=== PATIENT | male | born 1955 | race Hispanic/Latino ===

== ENCOUNTER 2018-08-02 08:55 | Emergency (ER) | payer OTHER ==
[~2018-08-02] VITALS: Ht 170.2 cm; Wt 84.4 kg
[2018-08-02] MEDS ORDERED: PANTOPRAZOLE 40 MG 10ML VIAL IV STA (09:33)
[2018-08-02] MEDS ORDERED: KETOROLAC TROMETHAMINE 30 MG/ML VIAL IV STA (09:33)
[2018-08-02] MEDS ORDERED: SODIUM CHLORIDE 0.9% 1000ML 1,000 ML IV STA (09:33)
[2018-08-02 10:34] LABS: BASOPHILS % 0.3 % (0.0-1.0); EOSINOPHILS # (AUTO) 0.1 (0.0-0.4); EOSINOPHILS % 1.1 % (0.0-6.0); HEMATOCRIT 28.9 % (38.2-49.6); HEMOGLOBIN 9.9 g/dL (14.0-18.0); LYMPHOCYTES # (AUTO) 0.5 (1.0-3.2); LYMPHOCYTES % 7.3 % (18.0-39.1); MEAN CORPUSCULAR HEMOGLOBIN 32.9 pg (28-32); MEAN CORPUSCULAR HGB CONC 34.3 g/dL (31-35); MONOCYTES # (AUTO) 0.6 (0.2-0.8); MONOCYTES % 8.1 % (4.4-11.3); NEUTROPHILS # (AUTO) 6.1 (2.1-6.9); NEUTROPHILS % 82.5 % (38.7-80.0); PLATELET COUNT 309 x10e3/uL (140-360); RED BLOOD COUNT 3.01 x10e6/uL (4.3-5.7); RED CELL DISTRIBUTION WIDTH 15.7 % (11.7-14.4)
[2018-08-02 10:49] LABS: ALBUMIN 3.5 g/dL (3.5-5.0); ALBUMIN/GLOBULIN RATIO 0.9 (0.8-2.0); ANION GAP 13.8 mmol/L (8-16); CALCIUM 10.2 mg/dL (8.4-10.2); CREATININE, SERUM 3.06 mg/dL (0.72-1.25); POTASSIUM 4.8 mmol/L (3.5-5.1)
[2018-08-02] MEDS ORDERED: DIATRIZOATE MEGL/DIATRIZOA SOD 30 ML BTL PO ONE (11:34)
--- NOTE | 2018-08-02 12:00 | NUR ---
rec'd pt in walking rounds w/cordelia for continuity of care
--- NOTE | 2018-08-02 13:12 | Diagnostic Imaging Report ---
EXAMINATION: CT of the abdomen and pelvis without contrast. TECHNIQUE: Spiral CT images of the abdomen and pelvis were performed from the lung bases to the lesser trochanters. No intravenous contrast was given per referring physician request. Oral contrast was administered. Coronal and sagittal reformatted images were obtained. COMPARISON: None. CLINICAL HISTORY:Abdominal pain DISCUSSION: ABSENCE OF INTRAVENOUS CONTRAST DECREASES SENSITIVITY FOR DETECTION OF FOCAL LESIONS AND VASCULAR PATHOLOGY. ABDOMEN/PELVIS: LOWER THORAX: Unremarkable. HEPATOBILIARY:1.6 cm hypoattenuating lesion in hepatic segment 5 (series 2 image 17). 1.3 cm hypoattenuating lesion in the inferior most aspect of segment 5-6 seen on series 2 image 25. Questionable 1.8 cm hypoattenuating lesion in segment 8 centrally (series 2 image 10). Linear hypoattenuating structures within the liver parenchyma are felt to represent prominent portal venous branches rather than intrahepatic biliary dilatation. The gallbladder is collapsed. No radiopaque calculi. SPLEEN: No splenomegaly. PANCREAS: Evaluation is severely limited in the absence of intravenous contrast. Questionable 3 x 2.5 cm mass lesion in the pancreatic body with adjacent fat stranding which obscures the confluence of the SMV and portal vein, with atrophy of the tail, seen on series 2 image 21. ADRENALS: No adrenal nodules. KIDNEYS/URETERS: No hydronephrosis, stones, or solid mass lesions. PELVIC ORGANS/BLADDER: The urinary bladder is unremarkable. Prostate and seminal vesicles appear normal. Multiple pelvic phleboliths. PERITONEUM/RETROPERITONEUM: No free air or fluid. LYMPH NODES: Mildly enlarged babs hepatis lymph node measures 1 cm short axis. No pelvic sidewall or retroperitoneal lymphadenopathy. VESSELS: Limited evaluation without intravenous contrast. Atherosclerotic calcification of the abdominal aorta without aneurysmal dilatation. GI TRACT: The large bowel shows no evidence of distention or wall thickening. Gas and fecal material are noted throughout. The appendix is normal. There is no small bowel dilatation to suggest obstruction. Prominence of the gastric rugal folds likely due to underdistention. BONES AND SOFT TISSUES: No bony destructive lesions. No soft tissue abnormalities. IMPRESSION: Despite significant limitation of a noncontrast examination, findings are concerning for pancreatic neoplasm with hepatic metastases. MRI of the abdomen with MRCP is suggested for further evaluation, given low GFR precluding contrast-enhanced CT examination. Signed by: Dr. Corbin Beltran M.D. on 08/02/2018 1:09 PM
== END 2018-08-02 14:00 | disposition home or self-care (01) ==
LOC: ER 08:55
DX: R10.84 Generalized abdominal pain (principal); R11.0 Nausea; N17.9 Acute kidney failure, unspecified; C25.9 Malignant neoplasm of pancreas, unspecified; I10 Essential (primary) hypertension; E11.9 Type 2 diabetes mellitus without complications; E78.5 Hyperlipidemia, unspecified
CPT/HCPCS: 36415; 74176; 80053; 82550; 82553; 83690; 84484; 85025; 93005; 99284; C9113; J1885; J7030

== ENCOUNTER → 2018-08-16 | Day surgery (SDC) | payer OTHER ==
--- NOTE | 2018-08-15 10:14 | Diagnostic Imaging Report ---
EXAM: CHEST 2 VIEWS, PA and lateral DATE: 08/15/2018 Time stamp on exam: 9:48 AM INDICATION: Preoperative for Port-A-Cath placement COMPARISON: None FINDINGS: LINES/TUBES: Catheter is seen below the diaphragm in the right upper quadrant. LUNGS: No consolidations or edema. PLEURA: No effusions or pneumothorax. HEART AND MEDIASTINUM: Normal size and contour. BONES AND SOFT TISSUES: No acute findings. Mild degenerative changes of the spine. IMPRESSION: No acute thoracic abnormality. Signed by: Dr. John Aly DO on 08/15/2018 10:10 AM
[2018-08-15 10:47] LABS: BASOPHILS % 0.4 % (0.0-1.0); EOSINOPHILS # (AUTO) 0.1 (0.0-0.4); EOSINOPHILS % 1.6 % (0.0-6.0); HEMATOCRIT 25.4 % (38.2-49.6); HEMOGLOBIN 8.5 g/dL (14.0-18.0); LYMPHOCYTES # (AUTO) 0.4 (1.0-3.2); LYMPHOCYTES % 7.9 % (18.0-39.1); MEAN CORPUSCULAR HEMOGLOBIN 33.1 pg (28-32); MEAN CORPUSCULAR HGB CONC 33.5 g/dL (31-35); MEAN CORPUSCULAR VOLUME 98.8 fL (81-99); MONOCYTES # (AUTO) 0.5 (0.2-0.8); MONOCYTES % 9.9 % (4.4-11.3); NEUTROPHILS % 79.4 % (38.7-80.0); PLATELET COUNT 228 x10e3/uL (140-360); RED BLOOD COUNT 2.57 x10e6/uL (4.3-5.7); RED CELL DISTRIBUTION WIDTH 15.9 % (11.7-14.4)
[2018-08-15 10:51] LABS: INR 0.99; PROTHROMBIN TIME 13.6 seconds (11.9-14.5)
[2018-08-15 10:52] LABS: PARTIAL THROMBOPLASTIN TIME 28.7 seconds (23.8-35.5)
[2018-08-15 11:01] LABS: ALBUMIN/GLOBULIN RATIO 0.9 (0.8-2.0); ANION GAP 13.2 mmol/L (8-16); CALCIUM 9.3 mg/dL (8.4-10.2); CREATININE, SERUM 1.29 mg/dL (0.72-1.25); POTASSIUM 4.2 mmol/L (3.5-5.1)
[~2018-08-16] MED LIST: ASPIRIN PO; BACITRACIN 50,000 UNIT VIAL ONE; CEFAZOLIN SOD 1 GM VIAL ONE; CEFAZOLIN SOD 1 GM/NS 50ML 50 ML IV ONE; DEXAMETHASONE SOD PHOS INJ 4 MG/ML VIAL ONE; FENOFIBRATE145 MG PO; FENTANYL CITRATE/PF 100MCG/2 ML INJ ONE; FOLIC ACID1 MG PO; HEPARIN SOD (PORCINE) 5,000 UNIT/ML VIAL ONE; HYDROCODONE/APAP 7.5MG-325MG 1 EA TAB ONE; LIDOCAINE HCL 2% LOCAL INJ 5 ML SDV VIAL INJ ONE; METOPROLOL TART50 MG PO; MIDAZOLAM HCL 2 MG/2 ML VIAL ONE; ONDANSETRON HCL INJ 2MG/ML 2ML 2 MG/ML VIAL ONE; PROPOFOL IV EMULSION 10 MG/ML 20 ML VIAL ONE; SEVOFLURANE INHAL SOLN 250 ML PEN BTL ONE; SODIUM CHLORIDE 0.9% 500ML 500 ML ONE; TRESIBA FLEX TOUCH SC; [UNRECOGNIZED DRUG - OTHER] PO; aspirin; iron PO
--- OUTSIDE RECORDS SUMMARY | 2018-08-16 06:39 | XMS REPORT ---
[facility] Address Unknown Phone Unavailable Care Team Providers Care Chief Meter Reader Name Role Phone MICHEL GRAHAM Unavailable Unavailable Mando GUILLORY Unavailable Unavailable Problems This patient has no known problems. Allergies, Adverse Reactions, Alerts This patient has no known allergies or adverse reactions. Medications This patient has no known medications. Results Test Description Test Time Test Comments Text Results Atomic Results Result Comments CHEST 2 VIEWS 2018-08-15 10:08:00 [place] [address] Patient Name: TOMAS SANDERS MR #: [id number] : 1955 Age/Sex: 62/M Req #: [id number] Adm Physician: Ordered by: MICHEL GRAHAM MD Report #: [id number] Location: OR Room/Bed: Procedure: [id number] DX/CHEST 2 VIEWS Exam Date: 08/15/18 Exam Time: 0935 REPORT STATUS: Signed EXAM: CHEST 2 VIEWS, PA and lateral DATE: 08/15/2018 Time stamp on exam: 9:48 AM INDICATION: Preoperative for Port-A-Cath placement COMPARISON: None FINDINGS: LINES/TUBES: Catheter is seen below the diaphragm in the right upper quadrant. LUNGS: No consolidations or edema. PLEURA: No effusions or pneumothorax. HEART AND MEDIASTINUM: Normal size and contour. BONES AND SOFT TISSUES: No acute findings. Mild degenerative changes of the spine. IMPRESSION: No acute thoracic abnormality. Signed by: Dr. Lilly Aly DO on 08/15/2018 10:10 AM Dictated By: LILLY ALY DO 1010 Transcribed By: REBECCA on 08/15/18 1010 COPY TO: MICHEL GRAHAM MD CT ABDOMEN/PELVIS WO 2018-08-02 12:48:00 [place] [address] Patient Name: TOMAS SANDERS MR #: [id number] : 1955 Age/Sex: 62/M Req #: [id number] Adm Physician: Ordered by: MARLON GUILLORY MD Report #: [id number] Location: ER Room/Bed: Procedure: [id number] CT/CT ABDOMEN/PELVIS WO Exam Date: 08/02/18 Exam Time: 1230 REPORT STATUS: Signed EXAMINATION: CT of the abdomen and pelvis without contrast. TECHNIQUE: Spiral CT images of the abdomen and pelvis were performed from the lung bases to the lesser trochanters. No intravenous contrast was given per referring physician request. Oral contrast was administered. Coronal and sagittal reformatted images were obtained. COMPARISON: None. CLINICAL HISTORY:Abdominal pain DISCUSSION: ABSENCE OF INTRAVENOUS CONTRAST DECREASES SENSITIVITY FOR DETECTION OF FOCAL LESIONS AND VASCULAR PATHOLOGY. ABDOMEN/PELVIS: LOWER THORAX: Unremarkable. HEPATOBILIARY:1.6 cm hypoattenuating lesion in hepatic seg ment 5 (series 2 image 17). 1.3 cm hypoattenuating lesion in the inferior most aspect of segment 5-6 seen on series 2 image 25. Questionable 1.8 cm hypoattenuating lesion in segment 8 centrally (series 2 image 10). Linear hypoattenuating structures within the liver parenchyma are felt to represent prominent portal venous branches rather than intrahepatic biliary dilatation. The gallbladder is collapsed. No radiopaque calculi. SPLEEN: No splenomegaly. PANCREAS: Evaluation is severely limited in the absence of intravenous contrast. Questionable 3 x 2.5 cm mass lesion in the pancreatic body with adjacent fat stranding which obscures the confluence of the SMV and portal vein, with atrophy of the tail, seen on series 2 image 21. ADRENALS: No adrenal nodules. KIDNEYS/URETERS: No hydronephrosis, stones, or solid mass lesions. PELVIC ORGANS/BLADDER: The urinary bladder is unremarkable. Prostate and seminal vesicles appear normal. Multiple pelvic phleboliths. PERITONEUM/RETROPERITONEUM: No free air or fluid. LYMPH NODES: Mildly enlarged babs hepatis lymph node measures 1 cm short axis. No pelvic sidewall or retroperitoneal lymphadenopathy. VESSELS: Limited evaluation without intravenous contrast. Atherosclerotic calcification of the abdominal aorta without aneurysmal dilatation. GI TRACT: The large bowel shows no evidence of distention or wall thickening. Gas and fecal material are noted throughout. The appendix is normal. There is no small bowel dilatation to suggest obstruction. Prominence of the gastric rugal folds likely due to underdistention. BONES AND SOFT TISSUES: No bony destructive lesions. No soft tissue abnormalities. IMPRESSION: Despite significant limitation of a noncontrast examination, findings are concerning for pancreatic neoplasm with hepatic metastases. MRI of the abdomen with MRCP is suggested for further evaluation, given low GFR precluding contrast-enhanced CT examination. Signed by: Dr. Augie Mancera M.D. on 08/02/2018 1:09 PM Dictated By: AUGIE MANCERA MD 1301 Transcribed By: REBECCA on 08/02/18 1303 COPY TO: MARLON GUILLORY MD
--- NOTE | 2018-08-16 11:28 | Operative Report ---
DATE OF PROCEDURE: 08/16/2018 SURGEON: Lalito Philip MD PREOPERATIVE DIAGNOSIS: Advanced pancreatic cancer with liver invasion. POSTOPERATIVE DIAGNOSIS: Advanced pancreatic cancer with liver invasion. PROCEDURE PERFORMED: Left Port-A-Cath insertion via the subclavian region. ANESTHESIA: General. ESTIMATED BLOOD LOSS: Minimal. DRAINS: None. COMPLICATION: None. INDICATION: The patient is an unfortunate 62-year-old male recently diagnosed with advanced metastatic pancreatic cancer with invasion to the liver, who at the request of Oncology, Port-A-Cath was requested. A Bard Port-A-Cath, product number [id number], lot serial number [id number] was placed in the left subclavian region using Seldinger technique. DESCRIPTION OF PROCEDURE: With the patient lying on the operative table in the supine position after administration of general endotracheal anesthesia, he was given prophylactic antibiotics with Ancef 1 g and then prepped and draped for left subclavian venous port access. The left subclavian vein was percutaneously canalized and a guidewire introduced. Fluoroscopy revealed the guidewire to be lying in the right side of the heart in the great vessels. A pocket was then created using blunt dissection to accommodate the port, then the guidewire tract was dilated, the peel-away sheath was left in place and then the catheter was connected to the port using the self-locking mechanism and irrigated with heparinized solution, then the catheter was advanced through the peel-away sheath as sheath was removed and then placed in the pocket. Fluoroscopy again revealed that the catheter was lying in the superior vena cava right atrial junction. It was flushed again and irrigated well with heparinized solution, then the port was secured to the pectoral fascia at three different points with 2-0 silk to prevent migration. Then, the wound irrigated and any minor oozing was cauterized and the wound was closed in two layers using 2-0 Vicryl for the soft tissues and the skin was closed using 5-0 subcuticular Vicryl. Steri-Strips were placed. The patient tolerated the procedure well, was taken to the recovery room in stable condition. The family informed of the patient's status. They understand that the prognosis is dismal. Lalito Philip MD PJR/MODL /[id number]
[2018-08-16 12:04] VITALS: BP 103/69
--- NOTE | 2018-08-16 12:24 | Diagnostic Imaging Report ---
EXAMINATION: CHEST SINGLE (PORTABLE) INDICATION: Venous port access. COMPARISON: Chest radiograph 08/15/2018. FINDINGS: TUBES and LINES: Interval placement of a left subclavian Port-A-Cath with tip terminating in the upper SVC. Catheter projects over the right upper quadrant abdomen. LUNGS: Lungs are moderately inflated. There is no evidence of pneumonia or pulmonary edema. PLEURA: No pleural effusion or pneumothorax. HEART AND MEDIASTINUM: The cardiomediastinal silhouette is unremarkable. BONES AND SOFT TISSUES: No acute osseous abnormality. UPPER ABDOMEN: No free air under the diaphragm. IMPRESSION: Interval placement of a left subclavian Port-A-Cath with tip terminating in the upper SVC. No evidence of pneumothorax. Signed by: Dr. Geovanni Gruber MD on 08/16/2018 12:20 PM
== END | disposition home or self-care (01) ==
LOC: OR 06:33
PROVIDERS: ATTEND Surgery
DX: C25.9 Malignant neoplasm of pancreas, unspecified (principal); C78.7 Secondary malignant neoplasm of liver and intrahepatic bile duct; Z45.2 Encounter for adjustment and management of vascular access device; D64.9 Anemia, unspecified; E11.22 Type 2 diabetes mellitus with diabetic chronic kidney disease; I12.9 Hypertensive chronic kidney disease with stage 1 through stage 4 chronic kidney disease, or unspecified chronic kidney disease; N18.9 Chronic kidney disease, unspecified; Z01.810 Encounter for preprocedural cardiovascular examination; Z01.812 Encounter for preprocedural laboratory examination; Z01.818 Encounter for other preprocedural examination; Z79.82 Long term (current) use of aspirin; Z79.4 Long term (current) use of insulin; Z86.73 Personal history of transient ischemic attack (TIA), and cerebral infarction without residual deficits; Z87.891 Personal history of nicotine dependence; Z80.9 Family history of malignant neoplasm, unspecified
CPT/HCPCS: 36561; C1751; 36415; 71045; 71046; 77001; 80053; 82948; 85025; 85610; 85730; J0690; J1100; J1644; J2001; J2250; J2405; J7040

== ENCOUNTER 2018-09-05 21:57 | Inpatient (IN) | payer OTHER ==
[~2018-09-05] VITALS: Ht 170.2 cm; Wt 73.1 kg
[~2018-09-05 21:57] MED LIST changes: -BACITRACIN 50,000 UNIT VIAL ONE; -CEFAZOLIN SOD 1 GM VIAL ONE; -CEFAZOLIN SOD 1 GM/NS 50ML 50 ML IV ONE; -DEXAMETHASONE SOD PHOS INJ 4 MG/ML VIAL ONE; -FENTANYL CITRATE/PF 100MCG/2 ML INJ ONE; -HEPARIN SOD (PORCINE) 5,000 UNIT/ML VIAL ONE; -HYDROCODONE/APAP 7.5MG-325MG 1 EA TAB ONE; -LIDOCAINE HCL 2% LOCAL INJ 5 ML SDV VIAL INJ ONE; -MIDAZOLAM HCL 2 MG/2 ML VIAL ONE; -ONDANSETRON HCL INJ 2MG/ML 2ML 2 MG/ML VIAL ONE; -PROPOFOL IV EMULSION 10 MG/ML 20 ML VIAL ONE; -SEVOFLURANE INHAL SOLN 250 ML PEN BTL ONE; -SODIUM CHLORIDE 0.9% 500ML 500 ML ONE
[2018-09-05] MEDS ORDERED: ONDANSETRON HCL INJ 2MG/ML 2ML 2 MG/ML VIAL IV STA (22:21)
[2018-09-05 22:27] LABS: HEMATOCRIT 24.6 % (38.2-49.6); HEMOGLOBIN 8.7 g/dL (14.0-18.0); LYMPHOCYTES # (AUTO) 0.2 (1.0-3.2); MEAN CORPUSCULAR HEMOGLOBIN 34.1 pg (28-32); MEAN CORPUSCULAR HGB CONC 35.4 g/dL (31-35); MEAN CORPUSCULAR VOLUME 96.5 fL (81-99); PLATELET COUNT 79 x10e3/uL (140-360); RED BLOOD COUNT 2.55 x10e6/uL (4.3-5.7); RED CELL DISTRIBUTION WIDTH 13.7 % (11.7-14.4)
[2018-09-05] MEDS ORDERED: SODIUM CHLORIDE 0.9% 1000ML 1,000 ML IV SCH (22:30)
[2018-09-05] MEDS ORDERED: PROMETHAZINE 25MG/ NS 50ML (IV) IV ONE (22:30)
[2018-09-05 22:39] LABS: ALBUMIN 2.5 g/dL (3.5-5.0); ALBUMIN/GLOBULIN RATIO 0.7 (0.8-2.0); ANION GAP 19.6 mmol/L (8-16); CALCIUM 8.7 mg/dL (8.4-10.2); CREATININE, SERUM 1.62 mg/dL (0.72-1.25); POTASSIUM 3.6 mmol/L (3.5-5.1)
[2018-09-05 22:46] LABS: CREATINE KINASE MB 0.8 ng/mL (0-5.0)
[2018-09-05] MEDS ORDERED: METOPROLOL TAR100 MG PO (22:48)
[2018-09-05] MEDS ORDERED: PROCHLORPERAZIN10 MG PO (22:48)
[2018-09-05] MEDS ORDERED: NEXIUM40 MG PO (22:48)
[2018-09-05] MEDS ORDERED: TRESIBA SC (22:48)
[2018-09-05] MEDS ORDERED: HYDROCODON-ACE1 EAC9 PO (22:48)
[2018-09-05] MEDS ORDERED: ONDANSETRON HCL8 MG PO (22:48)
[2018-09-05 22:50] LABS: MAGNESIUM 1.6 MG/DL (1.3-2.1)
[2018-09-05] MEDS ORDERED: CEFEPIME HCL 1 GM VIAL IV SCH (23:00)
[2018-09-05] MEDS ORDERED: CEFEPIME 1GM/NS 0.9% 50 ML 50 ML IV ONE (23:04)
[2018-09-05] MEDS ORDERED: VANCOMYCIN 1GM/NS 250 ML 250 ML ONE (23:04)
[2018-09-05] MEDS ORDERED: SODIUM CHLORIDE 0.9% 1000ML 1,000 ML IV STA (23:07)
[2018-09-05] MEDS ORDERED: VANCOMYCIN 1GM/NS 250 ML 250 ML IV SCH (23:10)
--- NOTE | 2018-09-05 23:11 | Diagnostic Imaging Report ---
EXAMINATION: CHEST SINGLE (PORTABLE) COMPARISON: Chest x-ray 08/16/2018 INDICATION: ^COUGH ^[id number] ^2220 ^Y DISCUSSION: Frontal view of the chest obtained at 2219 hours. HEART AND MEDIASTINUM: The cardiomediastinal silhouette is unremarkable. LINES: MediPort catheter remains in the proximal SVC. LUNGS: The lungs are well inflated and clear. No pneumonia or pulmonary edema. PLEURA: No pleural effusion or pneumothorax. BONES AND SOFT TISSUES: No focal osseous lesion. The soft tissues are normal. IMPRESSION: No acute cardiopulmonary disease. Signed by: Dr. Mateo Casey MD on 09/05/2018 11:07 PM
[2018-09-05] MEDS ORDERED: DEXTROSE 50% SYRINGE 50 ML IV PRN (23:15)
[2018-09-05] MEDS ORDERED: ACETAMINOPHEN 1000 MG/100 ML IV PRN (23:15)
--- NOTE | 2018-09-05 23:26 | NUR ---
PT PLACED ON TELE BOX 1
[2018-09-06] VITALS (7 sets, daily range): BP systolic 132–187; BP diastolic 71–84
[2018-09-06 02:09] LABS: HYPOCHROMASIA MODERATE; LYMPHOCYTES % (MANUAL) 75 % (19-48); MONOCYTES % (MANUAL) 8 % (3.4-9.0); NEUTROPHILS % (MANUAL) 17 % (40-74)
[2018-09-06 02:11] LABS: HELMET CELLS MODERATE
[2018-09-06 02:12] LABS: SCHISTOCYTES MODERATE
[2018-09-06 02:13] LABS: PLATELET ESTIMATE MARKEDLY DECREASED; PLATELET MORPHOLOGY COMMENT MODERATE LARGE
[2018-09-06 03:11] LABS: BILIRUBIN,URINE SMALL (NEGATIVE); CLARITY,URINE CLEAR (CLEAR); COLOR,URINE YELLOW (YELLOW); KETONES,URINE NEGATIVE (NEGATIVE); LEUKOCYTE ESTERASE ,URINE NEGATIVE (NEGATIVE); NITRITE,URINE NEGATIVE (NEGATIVE); PROTEIN,URINE DIPSTICK 1+ (NEGATIVE); URINE UROBILINOGEN 0.2 mg/dL (0.2 - 1)
[2018-09-06 03:47] LABS: BACTERIA,URINE MANY /HPF; EPITHELIAL CELLS,URINE MODERATE /LPF
[2018-09-06 05:25] LABS: HEMOGLOBIN 7.2 g/dL (14.0-18.0); LYMPHOCYTES # (AUTO) 0.1 (1.0-3.2); MEAN CORPUSCULAR HEMOGLOBIN 34.8 pg (28-32); MEAN CORPUSCULAR HGB CONC 35.8 g/dL (31-35); MEAN CORPUSCULAR VOLUME 97.1 fL (81-99); RED BLOOD COUNT 2.07 x10e6/uL (4.3-5.7); RED CELL DISTRIBUTION WIDTH 13.6 % (11.7-14.4)
[2018-09-06 05:38] LABS: ALBUMIN/GLOBULIN RATIO 0.7 (0.8-2.0); ANION GAP 11.9 mmol/L (8-16); CALCIUM 7.9 mg/dL (8.4-10.2); CREATININE, SERUM 1.24 mg/dL (0.72-1.25); MAGNESIUM 2.1 MG/DL (1.3-2.1); PHOSPHORUS 2.6 MG/DL (2.3-4.7); POTASSIUM 3.9 mmol/L (3.5-5.1)
[2018-09-06 05:40] LABS: HEMATOCRIT 20.1 % (38.2-49.6); PLATELET COUNT 42 x10e3/uL (140-360)
[2018-09-06 06:48] LABS: ANISOCYTOSIS S; LYMPHOCYTES % (MANUAL) 80 % (19-48); MONOCYTES % (MANUAL) 10 % (3.4-9.0); NEUTROPHILS % (MANUAL) 10 % (40-74); PLATELET ESTIMATE MARKEDLY INCREASED; PLATELET MORPHOLOGY COMMENT NORMAL; POIKILOCYTOSIS S
[2018-09-06] MEDS: INSULIN REGULAR, HUMAN 100 UNIT/1 ML 3ML VIAL SQ SCH ×4 (07:30→21:00)
[2018-09-06] MEDS: SODIUM CHLORIDE 0.9% 1000ML 1,000 ML IV SCH ×4 (09:03→22:51)
--- NOTE | 2018-09-06 09:30 | NUR ---
aware of manual BP 179/80. Per " I will see patient soon"
[2018-09-06] MEDS ORDERED: HYDROCODONE/APAP 10MG-325MG TAB PO PRN (09:45)
[2018-09-06] MEDS ORDERED: ONDANSETRON HCL 4 MG ORAL DISINTEGRATING TAB PO PRN (09:45)
[2018-09-06] MEDS ORDERED: NON-FORMULARY MEDICATION (Ondansetron Hcl 8 MG) PO PRN (09:45)
[2018-09-06] MEDS ORDERED: TRESIBA 25 UNIT SC PRN (09:45)
[2018-09-06] MEDS ORDERED: ONDANSETRON HCL INJ 2MG/ML 2ML 2 MG/ML VIAL IV PRN (10:15)
[2018-09-06] MEDS: METOPROLOL SUCCINATE 50 MG TAB XL PO SCH (10:30)
--- NOTE | 2018-09-06 12:02 | Pre Op History & Physical ---
CHIEF COMPLAINT: Mr. Kelley is an unfortunate 63-year-old man, who is admitted at this time for nausea, vomiting, and diarrhea. HISTORY OF PRESENT ILLNESS: The patient tells me in Bhutanese only, that he had his 1st chemotherapy ever last week and consequently has no appetite and not eating, having nausea, vomiting, and diarrhea. PAST MEDICAL HISTORY: Significant for metastatic prostate cancer. Usually followed by Dr. Fleming, who is not available today. Full details are not available. He evidently has past history of hypertension as well and type 2 diabetes. HOME MEDICATIONS: Include Tresiba 25 units b.i.d., prochlorperazine 10 mg twice a day, ondansetron 8 mg q.6 hours p.r.n., metoprolol tartrate 100 mg daily, hydrocodone/acetaminophen, and Nexium 40 mg daily. PERSONAL AND SOCIAL HISTORY: Negative. PHYSICAL EXAMINATION: GENERAL: At this time, shows a thin, man, who looks much older than his stated age. VITAL SIGNS: Blood pressure 170/70. HEAD, EYES, EARS, NOSE, AND THROAT: Unremarkable. NECK: No jugular venous distention. THORAX: There is a left subclavian Port-A-Cath site, still healing, was implanted by Dr. Lalito Philip on August 16, 2018. HEART: Sounds S1, S2 are equal. No murmurs. LUNGS: Clear. ABDOMEN: Scaphoid. Normal bowel sounds. Nontender. EXTREMITIES: No cyanosis, clubbing, or edema. PERTINENT LABORATORY STUDIES: Shows hemoglobin 7.2, white count 0.2, and platelets 42,000. Sodium 139, potassium 3.9, chloride 101, bicarb 30, BUN 47, creatinine 1.2. Glucose 89. ASSESSMENT: 1. Nausea, vomiting, diarrhea, secondary to chemotherapy. 2. Neutropenia, secondary to chemotherapy. 3. Metastatic prostate cancer by history. 4. Hypertension. 5. Type 2 diabetes. PLAN: We will provide the patient with IV fluids and Imodium, Phenergan, and Zofran and we will ask Infectious Disease to continue antibiotic coverage for his neutropenia and prognosis is guarded. MD ILANA Silva/STEPHANIE /[id number] cc: MD Simon Soto MD Mohamed M Haq, MD
[2018-09-06] MEDS ORDERED: CEFEPIME 1GM/NS 0.9% 50 ML 50 ML IV SCH (13:00)
[2018-09-06] MEDS: LOPERAMIDE HCL 2 MG CAP PO PRN (15:45)
--- NOTE | 2018-09-06 16:32 | NUR ---
Manual BP taken BP 190/86. Paged to notify of patient's status
[2018-09-06] MEDS ORDERED: CLONIDINE HCL 0.1 MG TAB PO PRN (16:45)
--- NOTE | 2018-09-06 16:52 | NUR ---
FSBG 66. Apple juice given to patient
[2018-09-06] MEDS ORDERED: FILGRASTIM 300 MCG/ML VIAL SC SCH (17:00)
[2018-09-06] MEDS: VANCOMYCIN 1GM/NS 250 ML 250 ML IV SCH (17:03)
[2018-09-06] MEDS: PROCHLORPERAZINE MALEATE TAB 10 MG TAB PO SCH (17:04)
--- NOTE | 2018-09-06 19:00 | NUR ---
Received patient from day nurse, patient is alert and oriented, patient denies any pain at this time, patient is not in any form of distress, introduced self to patient, safety and fall precautions maintained as per hospital protocol: bed in lowest position and locked, needed items beside bed and call harris placed close to patient, patient instructed to use it to call nurses for help, patient verbalized understanding. patient is currently stable will continue to monitor.
--- NOTE | 2018-09-06 19:00 | NUR ---
REPORT GIVEN TO ONCOMING NURSE OF PATIENT'S STATUS. NO S/S OF ACUTE DISTRESS NOTED
--- NOTE | 2018-09-06 19:25 | Consultation ---
DATE OF CONSULTATION: 09/06/2018 REASON FOR CONSULTATION: Concerned about sepsis. HISTORY OF PRESENT ILLNESS: This patient is a 63-year-old Palestinian male, who was diagnosed recently with pancreatic cancer, received chemotherapy on August [address] Fleming. The patient comes in with sudden onset of some component of shortness of breath, a lot of what he describes as secretions coming from his throat and some shortness of breath, feverish. The patient came to the emergency room. In the emergency room, he was found to have white count of 0.25, hemoglobin 8.7, platelet of 79. Sodium 139, potassium 3.9, creatinine 1.24. The patient was admitted. He was started on cefepime. He is on Toprol, vancomycin, Zofran, and acetaminophen. The patient is feeling better since he came here. No specific complaints, just feeling really bad and feeling really fatigued. PAST MEDICAL HISTORY: Pancreatic cancer and hypertension. PAST SURGICAL HISTORY: Port-A-Cath. ALLERGIES: NO KNOWN ALLERGIES. SOCIAL HISTORY: He used to smoke, quit 30 years ago. No drug abuse or alcohol abuse. FAMILY HISTORY: Hypertension. REVIEW OF SYSTEMS: HEENT: Negative. PULMONARY: There is some shortness of breath and chest discomfort. PHYSICAL EXAMINATION: GENERAL: He is currently alert and oriented, does not seem to be in acute distress. VITAL SIGNS: Stable. HEENT: Normocephalic. NECK: Supple. CHEST: Few crackles. COR: S1, S2. No S3, S4, or murmur. ABDOMEN: Soft. Bowel sounds present. No tenderness. No hepatosplenomegaly. EXTREMITIES: No edema. SKIN: No rash. IMPRESSION AND PLAN: Sepsis with neutropenic fever and the patient on chemotherapy. I agree with cefepime, we will do 2 g q.8, vancomycin 1 g q.12. Await blood cultures and urine cultures. Follow vancomycin trough, daily CBC. We will give also Neupogen. We will follow with you. MD ELIU Lorenzo/STEPHANIE /[id number]
[2018-09-06] MEDS ORDERED: PROMETHAZINE 25MG/ NS 50ML (IV) IV PRN (20:30)
[2018-09-06] MEDS: CEFEPIME 2 GM/NS 0.9% 100 ML 100 ML IV SCH (21:17)
[2018-09-07] VITALS (8 sets, daily range): BP systolic 122–188; BP diastolic 57–79
[2018-09-07] MEDS: ONDANSETRON HCL INJ 2MG/ML 2ML 2 MG/ML VIAL IV SCH ×5 (00:01→23:19)
[2018-09-07] MEDS: VANCOMYCIN 1GM/NS 250 ML 250 ML IV SCH ×2 (05:00→18:25)
[2018-09-07 05:40] LABS: EOSINOPHILS % 9.1 % (0.0-6.0); LYMPHOCYTES # (AUTO) 0.1 (1.0-3.2); LYMPHOCYTES % 63.6 % (18.0-39.1); MEAN CORPUSCULAR HEMOGLOBIN 34.2 pg (28-32); MEAN CORPUSCULAR HGB CONC 34.9 g/dL (31-35); MEAN CORPUSCULAR VOLUME 97.9 fL (81-99); MONOCYTES % 13.6 % (4.4-11.3); NEUTROPHILS % 13.7 % (38.7-80.0); RED CELL DISTRIBUTION WIDTH 13.6 % (11.7-14.4)
[2018-09-07 05:45] LABS: HEMATOCRIT 18.6 % (38.2-49.6); HEMOGLOBIN 6.5 g/dL (14.0-18.0)
[2018-09-07 05:46] LABS: PLATELET COUNT 35 x10e3/uL (140-360)
[2018-09-07 05:56] LABS: BLOOD UREA NITROGEN 27 mg/dL (7-26); BUN/CREATININE RATIO 32 (6-25); CALCIUM 7.3 mg/dL (8.4-10.2); CARBON DIOXIDE 25 mmol/L (22-29); CHLORIDE 105 mmol/L (98-107); CREATININE, SERUM 0.84 mg/dL (0.72-1.25); EST GLOMERULAR FILTRATION RATE > 60 ML/MIN (60-); GLUCOSE 95 mg/dL (74-118); SODIUM 138 mmol/L (136-145)
[2018-09-07 06:05] LABS: ANION GAP 11.1 mmol/L (8-16)
[2018-09-07 06:06] LABS: POTASSIUM 3.1 mmol/L (3.5-5.1)
[2018-09-07] MEDS: CEFEPIME 2 GM/NS 0.9% 100 ML 100 ML IV SCH ×3 (06:09→21:32)
--- NOTE | 2018-09-07 06:14 | NUR ---
critical hgb, wbc, platelets and hmct called to Dr Lopez, spoke to Elsie on the phone.Waiting for call back.
[2018-09-07] MEDS ORDERED: SODIUM CHLORIDE 0.9% 250ML 250 ML IV ONE (07:00)
--- NOTE | 2018-09-07 07:20 | NUR ---
pt alert resp even and unlabored at this time no distress noted, no c/o pain when asked, pt able to make needs known, call light in reach pt family member at bedside.
[2018-09-07] MEDS: INSULIN REGULAR, HUMAN 100 UNIT/1 ML 3ML VIAL SQ SCH ×4 (07:30→21:00)
[2018-09-07] MEDS: SODIUM CHLORIDE 0.9% 1000ML 1,000 ML IV SCH ×2 (07:48→18:31)
--- NOTE | 2018-09-07 08:08 | NUR ---
patient endorsed to next shift for continuity of care, pending transfusion.
[2018-09-07 08:32] LABS: LYMPHOCYTES % (MANUAL) 82 % (19-48); MONOCYTES % (MANUAL) 6 % (3.4-9.0); NEUTROPHILS % (MANUAL) 12 % (40-74)
[2018-09-07 08:33] LABS: PLATELET ESTIMATE MARKEDLY DECREASED; PLATELET MORPHOLOGY COMMENT FEW EDTA CLUMPING; RBC MORPHOLOGY COMMENT NORMAL; TOXIC GRANULATION SLIGHT
[2018-09-07] MEDS ORDERED: ACETAMINOPHEN 1000 MG/100 ML IV ONE (09:00)
[2018-09-07] MEDS ORDERED: METOPROLOL SUCCINATE 50 MG TAB XL PO SCH (09:00)
[2018-09-07] MEDS ORDERED: FILGRASTIM 300 MCG/ML VIAL SC SCH (09:00)
[2018-09-07] MEDS ORDERED: NON-FORMULARY MEDICATION (Metoprolol Tartrate 100 MG) PO SCH (09:00)
[2018-09-07] MEDS: PANTOPRAZOLE SOD 40 MG TABEC PO SCH (09:11)
[2018-09-07] MEDS: METOPROLOL SUCCINATE 50 MG TAB XL PO SCH (09:11)
[2018-09-07] MEDS: PROCHLORPERAZINE MALEATE TAB 10 MG TAB PO SCH ×2 (09:11→17:14)
[2018-09-07] MEDS ORDERED: SODIUM CHLORIDE 0.9% 250ML 250 ML ONE (10:32)
[2018-09-07] MEDS: FILGRASTIM 480 MCG/0.8 ML SYRINGE SQ SCH (10:57)
[2018-09-07] MEDS: LOPERAMIDE HCL 2 MG CAP PO PRN (12:26)
--- NOTE | 2018-09-07 18:45 | NUR ---
Nutrition Intervention Note RD Recommendation(s) for Physician: The patient meets criteria for MODERATE protein-calorie malnutrition. 1.Recommend adding ADA 1800 to cardiac diet 2.Rec Glucerna BID to increase protein-calorie intake Plan of Care: RD following, monitoring for tolerance and adequacy, ONS recommendations Nutrition reason for involvement: Nutrition Risk Trigger RD Assessment (09/07) 63 y/o Tamaz[place] speaking male recently diagnosed with pancreatic cancer admitted for nausea, vomiting and diarrhea. Patient complained of lack of appetite and poor oral intake x 1 month and ongoing diarrhea. Pending stool culture. Patient at bedside who noted pt recently receiving first chemo therapy session last month in August. Noticed significant weight loss over past 3 months. Reported UBW of 200 lbs, 6 months ago. Will continue to monitor and follow. Principal Problems/Diagnoses: Neutropenic Fever PMH: Significant for metastatic prostate cancer, Hypertension , Type 2 Diabetes GI: Soft, Flat Abdomen, reports ongoing diarrhea, LBM-09/06 Skin: Warm, Dry Labs: (09/07) K 3.1, BUN 27, Torres 7.3. POC Glucose 129 Meds: (09/07) Ondasterone, Loperamide HCl, Humulin R Ht: 67in Wt: 160 lbs BMI: 25.05kg/m2 IBW: 148 lbs +/- 10% Malnutrition Evaluation (09/07) The patient meets criteria for MODERATE protein-calorie malnutrition. Energy intake: <50% of estimated energy requirements for >1 month Weight loss: >10% in 6 months (Chronic) Fat loss: Mild/Moderate pronounced hollow depressed dark circles Muscle loss: Mild/Moderate, slight depression of temporal muscle Supporting Evidence: Fluid accumulation: unable to evaluate Functional Status: unable to evaluate Nutrition Prescription (Diet Order): Cardiac Diet Estimated Nutritional Needs: 1819-2545calories/day (25-35 kcal/kg CBW) 72- 109 g protein/day (1.0-1.5 g pro/kg CBW) Diet Adequacy: Not meeting calorie needs, Not meeting protein needs Diet Education Needs Assessment: Diet education indicated, but patient not appropriate for education at this time. Nutrition Care Level: MODERATE Nutrition Diagnosis: Inadequate oral intake related to ongoing N/V/D and pancreatic cancer on chemotherapy as evidenced by patient reports and observations with poor oral intake x1 month, ongoing N/V and 20% weight loss in 6 months. Goal: Patient will meet 75-100% of estimated needs by follow up Progress: Progressing Interventions: -Commercial beverage, modified diet Monitoring/Evaluation: -Total energy intake, Total protein intake, Liquid supplement, Modified diet, Weight change Signed: Shelley Lu, MS, RDN, LD
--- NOTE | 2018-09-07 19:26 | NUR ---
report given to oncoming nurse for continued care, pt stable.
--- NOTE | 2018-09-07 22:38 | Progress Note ---
DATE: 09/07/2018 Mr. Kelley is doing better today. There are no new complaints. LABORATORIES: His cultures are negative. His white count today is 0.22, which is up from 0.2. His hemoglobin is 6.5. His platelet count is 35. The patient remains on vancomycin and Zofran and cefepime. REVIEW OF SYSTEMS: HEENT: Negative. PULMONARY: Negative. CARDIAC: Negative. GENERAL: He has had no more fever since admission and is on antibiotic. His T-max has been 100.0 on 09/05. PHYSICAL EXAMINATION: GENERAL: He is currently alert, oriented, does not seem to be in acute distress. VITAL SIGNS: Stable, currently afebrile. HEENT: Not icteric. NECK: Supple. CHEST: Clear. ABDOMEN: Soft. IMPRESSION: 1. Neutropenic fever. While his fever resolved, he remains neutropenic. 2. Anemia. 3. Thrombocytopenia. 4. Pancreatic cancer, status post chemo. Continue with the current choice of IV antibiotic with a daily CBC, daily chem panel. We will follow levels. 5. Hypokalemia, we will replace. 6. We will follow with you. MD EILU Lorenzo/STEPHANIE /[id number]
[2018-09-08] VITALS (8 sets, daily range): BP systolic 132–149; BP diastolic 61–68
[2018-09-08] MEDS ORDERED: SODIUM CHLORIDE 0.9% 250ML 250 ML ONE (01:14)
[2018-09-08] MEDS: SODIUM CHLORIDE 0.9% 1000ML 1,000 ML IV SCH ×2 (02:53→23:38)
[2018-09-08] MEDS: VANCOMYCIN 1GM/NS 250 ML 250 ML IV SCH ×2 (04:58→17:13)
[2018-09-08] MEDS: ONDANSETRON HCL INJ 2MG/ML 2ML 2 MG/ML VIAL IV SCH ×4 (06:33→23:38)
[2018-09-08] MEDS: CEFEPIME 2 GM/NS 0.9% 100 ML 100 ML IV SCH ×3 (06:33→21:55)
--- NOTE | 2018-09-08 07:15 | NUR ---
PT ASLEEP RESP EVEN AND UNLABORED AT THIS TIME NO DISTRESS NOTED, PT EASILY AROUSED TO NAME AND ABLE TO MAKE NEEDS KNOWN, CALL LIGHT IN REACH FAMILY MEMBER AT BEDSIDE.
[2018-09-08] MEDS: INSULIN REGULAR, HUMAN 100 UNIT/1 ML 3ML VIAL SQ SCH ×4 (07:30→20:46)
[2018-09-08 09:44] LABS: BASOPHILS % 1.5 % (0.0-1.0); EOSINOPHILS % 1.5 % (0.0-6.0); HEMATOCRIT 29.5 % (38.2-49.6); HEMOGLOBIN 10.2 g/dL (14.0-18.0); LYMPHOCYTES # (AUTO) 0.3 (1.0-3.2); LYMPHOCYTES % 18.4 % (18.0-39.1); MEAN CORPUSCULAR HEMOGLOBIN 32.2 pg (28-32); MEAN CORPUSCULAR HGB CONC 34.6 g/dL (31-35); MEAN CORPUSCULAR VOLUME 93.1 fL (81-99); MONOCYTES # (AUTO) 0.1 (0.2-0.8); MONOCYTES % 7.4 % (4.4-11.3); NEUTROPHILS % 70.5 % (38.7-80.0); PLATELET COUNT 57 x10e3/uL (140-360); RED BLOOD COUNT 3.17 x10e6/uL (4.3-5.7); RED CELL DISTRIBUTION WIDTH 15.1 % (11.7-14.4)
[2018-09-08] MEDS: METOPROLOL SUCCINATE 50 MG TAB XL PO SCH (09:46)
[2018-09-08] MEDS: PROCHLORPERAZINE MALEATE TAB 10 MG TAB PO SCH ×2 (09:46→17:13)
[2018-09-08] MEDS: PANTOPRAZOLE SOD 40 MG TABEC PO SCH (09:46)
[2018-09-08 10:05] LABS: ALANINE AMINOTRANSFERASE 18 IU/L (0-55); ALBUMIN 1.6 g/dL (3.5-5.0); ALBUMIN/GLOBULIN RATIO 0.5 (0.8-2.0); ALKALINE PHOSPHATASE 107 IU/L (40-150); ANION GAP 16.7 mmol/L (8-16); BLOOD UREA NITROGEN 28 mg/dL (7-26); BUN/CREATININE RATIO 30 (6-25); CALCIUM 7.6 mg/dL (8.4-10.2); CARBON DIOXIDE 20 mmol/L (22-29); CHLORIDE 107 mmol/L (98-107); CREATININE, SERUM 0.93 mg/dL (0.72-1.25); EST GLOMERULAR FILTRATION RATE > 60 ML/MIN (60-); GLUCOSE 139 mg/dL (74-118); POTASSIUM 3.7 mmol/L (3.5-5.1); SODIUM 140 mmol/L (136-145)
[2018-09-08 13:00] LABS: BAND NEUTROPHILS % (MANUAL) 8 %; EOSINOPHILS % (MANUAL) 2 % (0-7); LYMPHOCYTES % (MANUAL) 21 % (19-48); MONOCYTES % (MANUAL) 7 % (3.4-9.0); NEUTROPHILS % (MANUAL) 62 % (40-74)
[2018-09-08 13:01] LABS: PLATELET ESTIMATE MODERATELY DECREASED; PLATELET MORPHOLOGY COMMENT NORMAL
[2018-09-08 13:02] LABS: BURR CELLS SLIGHT; RBC MORPHOLOGY COMMENT ABNORMAL; SCHISTOCYTES FEW
[2018-09-08 13:04] LABS: TOXIC GRANULATION SLIGHT
[2018-09-08] MEDS: FILGRASTIM 480 MCG/0.8 ML SYRINGE SQ SCH (13:10)
--- NOTE | 2018-09-08 16:32 | Progress Note ---
DATE: 09/08/2018 SUBJECTIVE: Mr. Kelley is feeling better. There is no new complaint. REVIEW OF SYSTEMS: HEENT: Negative. PULMONARY: Negative. CARDIAC: Negative. : Negative. GI: Negative. SKIN: No rash. LABORATORY DATA: Reviewed. His blood cultures, no growth 48 hours. His white count is 1.36, hemoglobin of 10.2. PHYSICAL EXAMINATION: GENERAL: He is currently alert, oriented, does not seem to be in acute distress. VITAL SIGNS: Stable, currently afebrile. There is no fever since 09/05. HEENT: Not icteric. NECK: Supple. No JVD. No lymphadenopathy. No thyromegaly. CHEST: Clear bilateral. HEART: S1, S2. No S3, S4, or murmur. ABDOMEN: Soft. Bowel sounds present. No tenderness. EXTREMITIES: No edema. SKIN: No rash. IMPRESSION: Neutropenic fever, seems getting better. The patient's neutropenia is resolving. If blood cultures remain negative, can discharge home tomorrow. If his white cell count continues to go up, no antibiotic. We will follow. Discussed with Internal Medicine. Discussed with medical team. Discussed with family. MD ELIU Lorenzo/STEPHANIE /[id number]
[2018-09-09 01:09] VITALS: BP 120/57
[2018-09-09 04:51] VITALS: BP 128/60
[2018-09-09] MEDS: VANCOMYCIN 1GM/NS 250 ML 250 ML IV SCH (04:59)
[2018-09-09 05:21] LABS: BASOPHILS % 0.3 % (0.0-1.0); EOSINOPHILS % 1.1 % (0.0-6.0); HEMATOCRIT 30.9 % (38.2-49.6); HEMOGLOBIN 10.5 g/dL (14.0-18.0); LYMPHOCYTES # (AUTO) 0.5 (1.0-3.2); LYMPHOCYTES % 12.4 % (18.0-39.1); MEAN CORPUSCULAR HEMOGLOBIN 32.3 pg (28-32); MEAN CORPUSCULAR VOLUME 95.1 fL (81-99); MONOCYTES # (AUTO) 0.3 (0.2-0.8); MONOCYTES % 7.9 % (4.4-11.3); NEUTROPHILS # (AUTO) 2.9 (2.1-6.9); NEUTROPHILS % 75.4 % (38.7-80.0); PLATELET COUNT 68 x10e3/uL (140-360); RED BLOOD COUNT 3.25 x10e6/uL (4.3-5.7); RED CELL DISTRIBUTION WIDTH 15.4 % (11.7-14.4)
[2018-09-09 05:40] LABS: ANION GAP 16.2 mmol/L (8-16); BLOOD UREA NITROGEN 33 mg/dL (7-26); BUN/CREATININE RATIO 33 (6-25); CALCIUM 7.3 mg/dL (8.4-10.2); CARBON DIOXIDE 15 mmol/L (22-29); CHLORIDE 106 mmol/L (98-107); CREATININE, SERUM 1.01 mg/dL (0.72-1.25); EST GLOMERULAR FILTRATION RATE > 60 ML/MIN (60-); GLUCOSE 212 mg/dL (74-118); POTASSIUM 3.2 mmol/L (3.5-5.1); SODIUM 134 mmol/L (136-145)
--- NOTE | 2018-09-09 07:00 | NUR ---
RECEIVED BEDSIDE REPORT FROM RJ GALLOWAY. PT DENIES NEEDS AT THIS TIME.
[2018-09-09] MEDS: CEFEPIME 2 GM/NS 0.9% 100 ML 100 ML IV SCH (07:15)
[2018-09-09] MEDS: INSULIN REGULAR, HUMAN 100 UNIT/1 ML 3ML VIAL SQ SCH ×3 (07:30→17:13)
[2018-09-09 08:04] LABS: BAND NEUTROPHILS % (MANUAL) 6 %; LYMPHOCYTES % (MANUAL) 5 % (19-48); MONOCYTES % (MANUAL) 3 % (3.4-9.0); NEUTROPHILS % (MANUAL) 86 % (40-74)
[2018-09-09 08:05] LABS: PLATELET ESTIMATE MODERATELY DECREASED; PLATELET MORPHOLOGY COMMENT NORMAL
[2018-09-09 08:06] LABS: RBC MORPHOLOGY COMMENT NORMAL; TOXIC GRANULATION MODERATE
[2018-09-09] MEDS: PANTOPRAZOLE SOD 40 MG TABEC PO SCH (08:56)
[2018-09-09] MEDS: PROCHLORPERAZINE MALEATE TAB 10 MG TAB PO SCH ×2 (08:56→17:12)
[2018-09-09] MEDS: ONDANSETRON HCL INJ 2MG/ML 2ML 2 MG/ML VIAL IV SCH ×3 (08:56→17:12)
[2018-09-09] MEDS: METOPROLOL SUCCINATE 50 MG TAB XL PO SCH (08:57)
[2018-09-09 08:59] VITALS: BP 131/61
[2018-09-09 09:00] VITALS: BP 131/61
[2018-09-09 16:36] VITALS: BP 142/62
--- NOTE | 2018-09-09 17:24 | NUR ---
CLEARED BY DR. MUSE AND DR. PERRY FOR DISCHARGE HOME.
--- NOTE | 2018-09-09 20:12 | Consultation ---
DATE OF CONSULTATION: 09/09/2018 CONSULTATION REQUESTED: Willard Barber MD. REASON FOR CONSULTATION: Followup of carcinoma of the pancreas, on chemotherapy. HISTORY OF PRESENT ILLNESS: Thank you very kindly, Dr. 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 He had a stent placement in the biliary duct and aggressive 1 cycle of chemotherapy with folfirinox protocol. He had significant nausea, vomiting, and weakness from it and presented to the hospital with fever and neutropenia. He has been treated with hydration, broad spectrum antibiotic coverage, cultures, and followed by Infectious Disease. Cultures have negative so far. Chest x-ray was negative. He is feeling much butter. His nausea and vomiting have resolved. He was asking for food this morning. Additional details of the history as documented in the chart. Significant findings include comorbidities of diabetes, hypertension, and chronic kidney disease. Current complaints are mostly weakness. PHYSICAL EXAMINATION: GENERAL: An ill-looking male. VITAL SIGNS: As recorded in the chart. HEENT: Conjunctivae are little pale. There is a tough of scleral icterus. There is no palpable peripheral adenopathy. LUNGS: Clinically are clear. ABDOMEN: Soft. There is ascites. There is no calf muscle tenderness. EXTREMITIES: There are no areas of bone tenderness. NEUROLOGIC: There is no focal neurological deficit. LABORATORY DATA: Labs were reviewed. His bilirubin has decreased from the previous value. His neutropenia also has resolved. IMPRESSION: Carcinoma of the pancreas with liver metastasis, biliary obstruction status post stent placement, multiple comorbidities as listed. Admitted with neutropenic fever. Cultures negative. Neutropenia resolved. Fever resolved. From my point of view, the patient could be released if cleared Infectious Disease. I have advised him to follow up with me later in the week for plan and continuation of chemotherapy with appropriate dose adjustments in view of the neutropenic fever. Chepe Fleming MD [facility]/ANTONIL /[id number]
--- NOTE | 2018-09-10 11:42 | Discharge Summary ---
Mr. Kelley is a pleasant, but unfortunate 63-year-old man, who was admitted with fever and neutropenia. HOSPITAL COURSE: The patient was known to have metastatic pancreatic cancer and recently had chemotherapy treatment with Dr. Fleming. At home, he developed nausea, vomiting, and diarrhea and presented to the emergency room. The patient was noted to be neutropenic with white count of 0.2, hemoglobin 7.2, platelets 42,000. He was started on broad-spectrum antibiotics and seen by Dr. Lopez, covering Oncology, who transfused him with packed red blood cells as well. He was given Neupogen by Dr. Nicole. The patient's white cell count gradually improved. His nausea, vomiting, and diarrhea resolved, and by the 8th, the patient's white cell count was improved. He was discharged to home with no further antibiotics and he will follow up with Dr. Fleming for further management of the pancreatic cancer. DISCHARGE DIAGNOSES: 1. Neutropenic fever. 2. Pancreatic cancer. 3. Recent chemotherapy. 4. Hypertension. 5. Type 2 adult-onset diabetes. MD ILANA Silva/STEPHANIE /[id number] cc: MD Simon Gutiérrez MD
== END 2018-09-09 18:00 | disposition home or self-care (01) | DRG 808 ==
LOC: ER 21:57 → ERHOLD 23:04 → MED/SURG2 23:42
PROVIDERS: ADMIT Internal Medicine Cardiovascular Disease; ATTEND Internal Medicine Cardiovascular Disease
PROC: 30243N1 Transfusion of Nonautologous Red Blood Cells into Central Vein, Percutaneous Approach (ICD-10-PCS; principal; 2018-09-07)
DX: D70.1 Agranulocytosis secondary to cancer chemotherapy (principal); K83.1 Obstruction of bile duct; C25.9 Malignant neoplasm of pancreas, unspecified; C78.7 Secondary malignant neoplasm of liver and intrahepatic bile duct; E11.9 Type 2 diabetes mellitus without complications; E86.0 Dehydration; E78.5 Hyperlipidemia, unspecified; D64.9 Anemia, unspecified; E87.6 Hypokalemia; Z87.891 Personal history of nicotine dependence; R19.7 Diarrhea, unspecified; E11.22 Type 2 diabetes mellitus with diabetic chronic kidney disease; I12.9 Hypertensive chronic kidney disease with stage 1 through stage 4 chronic kidney disease, or unspecified chronic kidney disease; N18.9 Chronic kidney disease, unspecified
CPT/HCPCS: 36415; 71045; 80048; 80053; 81001; 82150; 82550; 82553; 82948; 83605; 83690; 83735; 84100; 84484; 85025; 86850; 86900; 86920; 87040; 87045; 87086; 93005; 96372; 96374; 99284; J0692; J1442; J1817; J2405; J2550; J3370; J7030; J7050; P9016

== ENCOUNTER → 2018-11-27 | Outpatient (CLI) | payer OTHER ==
[~2018-11-27] MED LIST changes: +HYDROCODON-ACE1 EAC9 PO; +IOPAMIDOL 370 MG/ML 200 ML INFUS..BTL INJ ONE; +METOPROLOL TAR100 MG PO; +NEXIUM40 MG PO; +ONDANSETRON HCL8 MG PO; +PROCHLORPERAZIN10 MG PO; +SODIUM CHLORIDE 0.9% 50ML 50 ML ONE; +TRESIBA SC
[2018-11-27 11:27] LABS: BLOOD UREA NITROGEN 11 mg/dL (7-26); BUN/CREATININE RATIO 14 (6-25); CREATININE, SERUM 0.77 mg/dL (0.72-1.25); EST GLOMERULAR FILTRATION RATE > 60 ML/MIN (60-)
--- NOTE | 2018-11-27 13:06 | Diagnostic Imaging Report ---
EXAM: CT Abdomen WITH intravenous contrast INDICATION: Pancreatic cancer COMPARISON: CT abdomen and pelvis of 08/02/2018 TECHNIQUE: Abdomen and pelvis were scanned utilizing a multidetector helical scanner from the lung base to the iliac crest after administration of IV contrast. Coronal and sagittal reformations were obtained. Routine protocol was performed. Scan was performed during portal venous phase. IV CONTRAST: 100mL of Isovue 370 ORAL CONTRAST: Water RADIATION DOSE: Total DLP: 180.7 mGy*cm Dose modulation, iterative reconstruction, and/or weight based adjustment of the mA/kV was utilized to reduce the radiation dose to as low as reasonably achievable. FINDINGS: LOWER THORAX: Mild bibasilar subsegmental atelectasis. HEPATOBILIARY: Compared to the prior CT of 08/02/2018, there has been interval increase in size of all previously described hepatic metastases and numerous new metastatic lesions in the right and left liver, for example a segment 7 lesion measuring 2.1 cm (series 2 image 14), a 2.3 cm segment 6 lesion (series 2 image 25), a 1 7-m segment 2 lesion (series 2 image 17, and a 8 mm segment 3 lesion (series 2 image 22). There is persistent intrahepatic biliary ductal dilatation left greater than right. An internal biliary stent was intervally placed, terminating superiorly in a left intrahepatic bile duct and inferiorly in the duodenum. SPLEEN: No splenomegaly. PANCREAS: Mild interval increase in size of the primary pancreatic mass which now measures approximately 3.9 x 3.6 cm compared to 3.4 x 3.4 cm previously (today's measurement). The mass completely encases the celiac artery and main portal vein and the central portion of the splenic vein and superior mesenteric vein with no appreciable contrast flow. The portal vein remains patent. ADRENALS: No adrenal nodules. KIDNEYS/URETERS: No hydronephrosis, stones, or solid mass lesions. PERITONEUM / RETROPERITONEUM: Small volume of abdominal ascites. LYMPH NODES: An enhancing periportal lymph node measures up to 1.4 cm short axis (series 2 image 28), previously 1.1 cm. Gastrohepatic lymph nodes measuring up to 1 cm short axis have also increased in size. VESSELS: Scattered atherosclerotic calcifications of the nonaneurysmal abdominal aorta and major branches. GI TRACT: No distention or wall thickening. BONES AND SOFT TISSUES: No acute osseous injury. Mixed sclerotic and lytic lesion of the T10 vertebral body has significantly increased in size, consistent with osseous metastasis. IMPRESSION: Interval progression of disease with increase in size of pancreatic mass, numerous new and increasing intrahepatic metastases, and osseous metastasis at the T10 vertebral body. Interval placement of internal biliary stent with persistent left greater than right intrahepatic biliary ductal dilation. Signed by: Sivakumar Rondon MD on 11/27/2018 1:02 PM
== END ==
LOC: CT 10:35
PROVIDERS: ATTEND Internal Medicine Hematology & Oncology
DX: C25.9 Malignant neoplasm of pancreas, unspecified (principal); C78.7 Secondary malignant neoplasm of liver and intrahepatic bile duct
CPT/HCPCS: 36415; 74160; 82565; 84520; Q9967

== ENCOUNTER 2019-01-28 18:53 | Inpatient (IN) | payer OTHER ==
[~2019-01-28] VITALS: Ht 170.2 cm; Wt 63.5 kg
[~2019-01-28 18:53] MED LIST changes: -IOPAMIDOL 370 MG/ML 200 ML INFUS..BTL INJ ONE; -SODIUM CHLORIDE 0.9% 50ML 50 ML ONE
[2019-01-28] MEDS ORDERED: SODIUM CHLORIDE 0.9% 1000ML 1,000 ML IV ONE ×2 (20:15→21:15)
[2019-01-28] MEDS ORDERED: ACETAMINOPHEN 325 MG TAB PO NR (20:15)
[2019-01-28] MEDS ORDERED: CEFEPIME 2 GM/NS 0.9% 100 ML 100 ML IV ONE (20:15)
[2019-01-28 20:50] LABS: BASOPHILS % 0.2 % (0.0-1.0); EOSINOPHILS % 0.1 % (0.0-6.0); HEMATOCRIT 24.5 % (38.2-49.6); HEMOGLOBIN 8.1 g/dL (14.0-18.0); LYMPHOCYTES # (AUTO) 0.2 (1.0-3.2); LYMPHOCYTES % 1.4 % (18.0-39.1); MEAN CORPUSCULAR HEMOGLOBIN 31.9 pg (28-32); MEAN CORPUSCULAR HGB CONC 33.1 g/dL (31-35); MEAN CORPUSCULAR VOLUME 96.5 fL (81-99); MONOCYTES # (AUTO) 0.2 (0.2-0.8); MONOCYTES % 1.1 % (4.4-11.3); NEUTROPHILS # (AUTO) 14.1 (2.1-6.9); NEUTROPHILS % 96.6 % (38.7-80.0); PLATELET COUNT 160 x10e3/uL (140-360); RED BLOOD COUNT 2.54 x10e6/uL (4.3-5.7); RED CELL DISTRIBUTION WIDTH 15.3 % (11.7-14.4)
[2019-01-28 20:59] LABS: STREPTOCOCCUS GRP A ANTIGEN NEGATIVE (NEGATIVE)
[2019-01-28 21:06] LABS: ALANINE AMINOTRANSFERASE 10 IU/L (0-55); ALBUMIN 1.8 g/dL (3.5-5.0); ALBUMIN/GLOBULIN RATIO 0.4 (0.8-2.0); ALKALINE PHOSPHATASE 249 IU/L (40-150); ANION GAP 16.8 mmol/L (8-16); BLOOD UREA NITROGEN 15 mg/dL (7-26); BUN/CREATININE RATIO 15 (6-25); CALCIUM 7.8 mg/dL (8.4-10.2); CARBON DIOXIDE 23 mmol/L (22-29); CHLORIDE 93 mmol/L (98-107); EST GLOMERULAR FILTRATION RATE > 60 ML/MIN (60-); GLUCOSE 197 mg/dL (74-118); POTASSIUM 3.8 mmol/L (3.5-5.1); SODIUM 129 mmol/L (136-145)
[2019-01-28 21:09] LABS: INFLUENZAE A&B ANTIGEN (RAPID) NEGATIVE (NEGATIVE)
--- NOTE | 2019-01-28 21:15 | Diagnostic Imaging Report ---
EXAMINATION: CHEST SINGLE (PORTABLE) INDICATION: Fever. COMPARISON: Chest radiograph 09/05/2018. FINDINGS: TUBES and LINES: Left subclavian Port-A-Cath with tip in the upper SVC. LUNGS: Low lung volumes. Mild patchy bibasilar opacities, likely atelectasis. There is no evidence of pneumonia or pulmonary edema. PLEURA: No pleural effusion or pneumothorax. HEART AND MEDIASTINUM: The cardiomediastinal silhouette is unremarkable. BONES AND SOFT TISSUES: No acute osseous lesion. Soft tissues are unremarkable. UPPER ABDOMEN: No free air under the diaphragm. IMPRESSION: Low lung volumes with mild patchy bibasilar opacities, likely atelectasis. No evidence of lobar pneumonia. Signed by: Dr. Geovanni Gruber MD on 01/28/2019 9:11 PM
[2019-01-28] MEDS ORDERED: SODIUM CHLORIDE 0.9% 1000ML 1,000 ML ONE (21:20)
[2019-01-28 21:25] LABS: AMYLASE 22 U/L (25-125); LIPASE 4 U/L (8-78)
[2019-01-28 21:32] LABS: CREATINE KINASE MB 0.5 ng/mL (0-5.0)
[2019-01-28] MEDS ORDERED: IOPAMIDOL 370 MG/ML 200 ML INFUS..BTL INJ ONE (22:13)
[2019-01-28 22:42] LABS: BILIRUBIN,URINE NEGATIVE (NEGATIVE); CLARITY,URINE CLEAR (CLEAR); KETONES,URINE NEGATIVE (NEGATIVE); LEUKOCYTE ESTERASE ,URINE NEGATIVE (NEGATIVE); NITRITE,URINE NEGATIVE (NEGATIVE); PROTEIN,URINE DIPSTICK TRACE (NEGATIVE); URINE UROBILINOGEN 0.2 mg/dL (0.2 - 1)
[2019-01-28 22:48] LABS: COLOR,URINE ORANGE (YELLOW)
[2019-01-28 22:55] LABS: BACTERIA,URINE MANY /HPF; EPITHELIAL CELLS,URINE FEW /LPF
--- NOTE | 2019-01-28 22:58 | Diagnostic Imaging Report ---
EXAM: CT Abdomen WITH intravenous contrast INDICATION: Abdominal pain, fever, history of metastatic pancreatic cancer. COMPARISON: CT abdomen with contrast 11/27/[address] abdomen/pelvis without contrast 08/02/2018. TECHNIQUE: Abdomen and pelvis were scanned utilizing a multidetector helical scanner from the lung base to the iliac crest after administration of IV contrast. Coronal and sagittal reformations were obtained. Routine protocol was performed. Scan was performed during portal venous phase. IV CONTRAST: 100mL of Isovue 370 ORAL CONTRAST: Water RADIATION DOSE: Total DLP: 360.6 mGy*cm Dose modulation, iterative reconstruction, and/or weight based adjustment of the mA/kV was utilized to reduce the radiation dose to as low as reasonably achievable. FINDINGS: LOWER THORAX: Mild bibasilar subsegmental atelectasis. Coronary atherosclerosis. HEPATOBILIARY: Enlargement of previously described metastases with multiple new lesions. Examples include a right hepatic dome lesion measuring up to 2.7 cm (series 2, image 14), previously 2.1 cm; a segment 4 lesion measures up to 3.3 cm (image 16), previously 2.2 cm. Numerous other new hepatic lesions. Slight interval increase in intrahepatic biliary ductal dilatation, left greater than right. Again noted is an internal left biliary stent extending from the left intrahepatic bile duct and terminating in the duodenum. SPLEEN: No splenomegaly. PANCREAS: Mild interval increase in size of the primary pancreatic mass which now measures approximately 4.7 x 3.7 cm compared to 3.9 x 3.6 cm previously. The mass completely encases the celiac artery and main portal vein and the central portion of the splenic vein and superior mesenteric vein with no appreciable contrast flow, as before. The main portal vein remains patent but somewhat attenuated. Pancreatic ductal dilatation, measuring up to 1.1 cm with atrophy of the body and tail. ADRENALS: No adrenal nodules. KIDNEYS/URETERS: No hydronephrosis, stones, or solid mass lesions. PERITONEUM / RETROPERITONEUM: Interval increase in size of moderate volume ascites. LYMPH NODES: Slight interval decrease in size of a periportal lymph node, measuring up to 1.2 cm (series 2, image 28), previously 1.4 cm. Unchanged 5 mm aortocaval lymph node. VESSELS: Scattered atherosclerotic calcifications of the nonaneurysmal abdominal aorta and major branches. GI TRACT: Moderate hiatal hernia. No evidence of bowel obstruction. There is mild wall thickening and mucosal enhancement in small bowel loops. There is wall thickening throughout the colon and rectum. There is soft tissue fullness in the distal rectum/anus. BONES AND SOFT TISSUES: No acute osseous injury. Mixed sclerotic and lytic lesion of the T10 vertebral body appears similar to the prior study. No evidence of pathologic fracture. IMPRESSION: Findings consistent with enteritis/proctocolitis, which may be infectious or inflammatory. Interval progression of disease with increase in size of pancreatic mass and numerous new and increasing intrahepatic metastases. Increasing moderate volume ascites. Similar appearance of osseous metastasis at the T10 vertebral body. Left internal biliary stent in unchanged position with slight interval increase in left greater than right intrahepatic biliary ductal dilatation. Soft tissue fullness in the distal rectum/anus. This may be secondary to decompression, however would be amenable to direct inspection. Signed by: Dr. Geovanni Gruber MD on 01/28/2019 10:55 PM
--- NOTE | 2019-01-28 23:27 | NUR ---
2nd lactic drawn and sent to the lab
--- NOTE | 2019-01-28 23:39 | NUR ---
DR. CAI IN TO SPEAK WITH PT AT THIS TIME
[2019-01-29] VITALS (10 sets, daily range): BP systolic 111–136; BP diastolic 50–74
[2019-01-29] MEDS ORDERED: ONDANSETRON HCL INJ 2MG/ML 2ML 2 MG/ML VIAL IV PRN (01:00)
[2019-01-29] MEDS ORDERED: DEXTROSE 50% SYRINGE 50 ML IV PRN (01:00)
[2019-01-29] MEDS: METRONIDAZOLE 500MG/NS 100ML 100 ML IV SCH ×4 (01:18→19:19)
[2019-01-29] MEDS: SODIUM CHLORIDE 0.9% 1000ML 1,000 ML IV SCH ×3 (01:18→16:43)
--- NOTE | 2019-01-29 03:28 | NUR ---
PT ARRIVED WITH [facility]OCK[facility]OD & [facility]. APPEARS TO BE COMFORTABLE, NO DISTRESS, DENIES PAIN, VS STABLE, ON RA-LUNG SOUNDS CLEAR BILATERALLY, HISTORY OBTAINED FROM ER STAFF & WHO IS AT BEDSIDE. SHE SPEAKS BOTH NEPALI AND MINIMAL SAO TOMEAN, THE PATIENT HIMSELF IS PRIMARILY NEPALI SPEAKING. PORT A CATH HAS BEEN ACCESSED BY ER, NS RUNNING AT 125 MLS/HR. IV ABX, BXC & URINE CX PENDING, LACTIC ELEVATED & WILL DRAW REPEAT. SKIN INTACT, NO WOUNDS NOTED. PT IS ON BEDREST AT THIS TIME, STATES HE AMBULATES INDEPENDENTLY AT HOME BUT LAST FEW DAYS HAS BEEN VERY WEAK AND FATIGUED. CONSULT TO [facility] BY ER, WILL SEE TOMORROW. PT DENIES BLOOD IN STOOL, STATES HIS LAST BM WAS 01/28-[facility]. DENIES ABD PAIN AT THIS TIME, ABD IS SOFT & BOWEL SOUNDS ACTIVE IN ALL QUADRANTS. PT REPORTS ONE EPISODE OF EMESIS IN ER. Addendum: 01/29/19 at 0420 by Vee Daly RN ER STATED PORT A CATH NEEDLE USED WAS 20 3
[2019-01-29 05:55] LABS: BASOPHILS % 0.1 % (0.0-1.0); LYMPHOCYTES # (AUTO) 0.3 (1.0-3.2); LYMPHOCYTES % 2.4 % (18.0-39.1); MEAN CORPUSCULAR HEMOGLOBIN 32.1 pg (28-32); MEAN CORPUSCULAR HGB CONC 32.8 g/dL (31-35); MEAN CORPUSCULAR VOLUME 97.9 fL (81-99); MONOCYTES # (AUTO) 0.4 (0.2-0.8); NEUTROPHILS # (AUTO) 12.6 (2.1-6.9); NEUTROPHILS % 93.2 % (38.7-80.0); PLATELET COUNT 117 x10e3/uL (140-360); RED BLOOD COUNT 1.93 x10e6/uL (4.3-5.7); RED CELL DISTRIBUTION WIDTH 15.4 % (11.7-14.4)
[2019-01-29 06:04] LABS: ALANINE AMINOTRANSFERASE 12 IU/L (0-55); ALBUMIN 1.5 g/dL (3.5-5.0); ALBUMIN/GLOBULIN RATIO 0.4 (0.8-2.0); ALKALINE PHOSPHATASE 169 IU/L (40-150); ANION GAP 10.9 mmol/L (8-16); BLOOD UREA NITROGEN 14 mg/dL (7-26); BUN/CREATININE RATIO 16 (6-25); CARBON DIOXIDE 25 mmol/L (22-29); CHLORIDE 97 mmol/L (98-107); CREATININE, SERUM 0.86 mg/dL (0.72-1.25); EST GLOMERULAR FILTRATION RATE > 60 ML/MIN (60-); GLUCOSE 209 mg/dL (74-118); POTASSIUM 3.9 mmol/L (3.5-5.1); SODIUM 129 mmol/L (136-145)
[2019-01-29 06:05] LABS: HEMATOCRIT 18.9 % (38.2-49.6); HEMOGLOBIN 6.2 g/dL (14.0-18.0)
[2019-01-29] MEDS: CEFEPIME 2 GM/NS 0.9% 100 ML 100 ML IV SCH ×3 (06:17→23:24)
[2019-01-29 07:06] LABS: HEMATOCRIT 18.1 % (38.2-49.6)
--- NOTE | 2019-01-29 07:13 | NUR ---
Dr Isaac paged about low blood count
[2019-01-29 07:31] LABS: BAND NEUTROPHILS % (MANUAL) 1 %; LYMPHOCYTES % (MANUAL) 1 % (19-48); MONOCYTES % (MANUAL) 2 % (3.4-9.0); NEUTROPHILS % (MANUAL) 96 % (40-74)
[2019-01-29 07:32] LABS: ANISOCYTOSIS SLIGHT; BURR CELLS SLIGHT; MICROCYTOSIS SLIGHT; POIKILOCYTOSIS SLIGHT
[2019-01-29 07:33] LABS: HELMET CELLS RARE; OVALOCYTES FEW
[2019-01-29 07:34] LABS: HYPOCHROMASIA SLIGHT; PLATELET ESTIMATE SLIGHTLY DECREASED; RBC MORPHOLOGY COMMENT ABNORMAL; TOXIC GRANULATION SLIGHT
[2019-01-29 07:35] LABS: PLATELET MORPHOLOGY COMMENT NORMAL
[2019-01-29] MEDS: INSULIN REGULAR, HUMAN 100 UNIT/1 ML 3ML VIAL SQ SCH ×4 (08:12→20:11)
--- NOTE | 2019-01-29 08:21 | NUR ---
Dr Isaac did not return call. Paged Dr Barber and 1 unit PRB ordred to give and 1 unit to hold.
[2019-01-29] MEDS ORDERED: SODIUM CHLORIDE 0.9% 250ML 250 ML IV ONE ×2 (08:30→17:00)
--- NOTE | 2019-01-29 10:29 | History and Physical ---
Mr. Kelley is an unfortunate 63-year-old man, diabetic, diagnosed with pancreatic carcinoma earlier this year. CHIEF COMPLAINT: He presents to the emergency room with a complaint of abdominal discomfort and a temperature of 100.0. HISTORY OF PRESENT ILLNESS: The patient reports he is not eating much. He is losing weight, but he has visited with Dr. Fleming as recently as SundayJanuary 27 in his office, who planned for further chemotherapy. PAST MEDICAL HISTORY: Significant for hospitalization at [facility] in September of 2018 for neutropenic fever after his first chemotherapy. He has a history of hypertension and diabetes. HOME MEDICATIONS: Include: 1. Nexium 40 mg daily. 2. Hydrocodone. 3. Metoprolol tartrate 100 mg daily. 4. Ondansetron. 5. Tresiba 25 units b.i.d. as needed. PHYSICAL EXAMINATION: GENERAL: At this time shows a thin, wasted looking man, who is awake. VITAL SIGNS: Blood pressure 123/53 and temperature 98.0. HEAD, EYES, EARS, NOSE, AND THROAT: Shows wasting. THORAX: There is a left subclavian Port-A-Cath with access. HEART: Sounds S1 and S2 are equal. No murmurs. LUNGS: Clear. ABDOMEN: Distended, nontender, soft with fluid wave. EXTREMITIES: Thin. INITIAL LABORATORY: Show hemoglobin 6.0 and white count 13.4. BUN 14, creatinine 0.8, and glucose 209. Lactic acid reported at 4.9 and 3.2. ASSESSMENT: 1. Metastatic pancreatic cancer with ascites by CAT scan. 2. Anemia. 3. Sepsis. 4. Diabetes. PLAN: He has been given broad-spectrum antibiotics. We will continue diabetic medications and consider transfusion for his anemia, hemoglobin 6.0. We will consult Gastroenterology and Oncology. His prognosis is guarded. MD ILANA Silva/ANTONIL /[id number] cc: MD Chepe Mcnamara MD Mohammed A Quraishi, MD Ramon A Pineda, MD
--- NOTE | 2019-01-29 11:39 | NUR ---
1st unit of blood transfusing with no reaction after 30 min. will monitor closely.
[2019-01-29] MEDS: ACETAMINOPHEN 325 MG TAB PO PRN ×2 (13:12→21:06)
--- NOTE | 2019-01-29 16:10 | NUR ---
2nd unit PRBC started and no reaction at 15 min.
[2019-01-29 18:06] LABS: OCCULT BLOOD STOOL NEGATIVE (NEGATIVE)
--- NOTE | 2019-01-29 18:06 | NUR ---
RD Recommendation(s) for Physician: The patient meets criteria for unspecified SEVERE protein-calorie malnutrition. -Ensure clear with meals -Advance diet to diabetic diet when medically appropriate Plan of Care: RD following, monitoring for tolerance and adequacy Nutrition reason for involvement: MST RD Assessment (01/29/19) Pt is a 63 year old male admitted with protocolitis and septic shock. Spoke to pt and family member. Pt and family member are Honduran speaking; therefore, a registered respiratory technician conveyed the information. Pt is currently on a clear liquid diet. Prior to admission, pt had been eating < 50% of meals since August 2018. Pt reports pain when he eats. Per wt history in chart, pt had a wt of 160 lbs in September 2018. Pt currently has a wt of 140 lbs in chart. If accurate, this would be a 13% wt loss in 4 months severe wt loss. Pt reports some nausea but mentioned he is receiving medication for this and has been having diarrhea. Will continue to monitor. Principal Problems/Diagnoses: protocolitis and septic shock PMH: HTN, diabetes, diagnosed with pancreatic carcinoma earlier this year I/O: 600/925 GI: soft, nontender abdomen, liquid stools Skin: no pressure ulcers Labs: (01/29/19) Na 129, Glu 209, Ca 7 Meds: (01/29/19) NaCl, insulin regular, ondansetron Ht: 67 inches Wt: 140 lbs BMI: 21.9 kg/m2 IBW: 147 lbs Malnutrition Evaluation (01/29/19 The patient meets criteria for unspecified SEVERE protein-calorie malnutrition. Energy intake: <50% of estimated energy requirements for >1 month Weight loss: 13% wt loss in 4 months Fat loss: no loss identified Muscle loss: Mild/moderate, temporal muscle depletion Supporting Evidence: Fluid accumulation: unable to evaluate Functional Status: unable to evaluate Nutrition Prescription (Diet Order): clear liquids Estimated Nutritional Needs: 1767-2442 calories/day (25-35 kcal/kg CBW) 64-95 g protein/day (1.-1.5g pro/kg CBW) Diet Adequacy: Not meeting calorie needs, Not meeting protein needs Tolerance:Tolerating PO Diet Education Needs Assessment: RD is available for diet education as needed Nutrition Care Level: high Nutrition Diagnosis: Severe protein kcal malnutrition related to chronic illness as evidenced by pt meeting < 75% of energy needs for > 1 month, 13% wt loss in 4 months, and mild/moderate muscle depletion. Goal: Patient will meet 75-100% of estimated needs by follow up Progress: N/A Interventions: Commercial beverage Monitoring/Evaluation: -Total energy intake, Total protein intake, Liquid supplement, Weight change Signed: Sylvia Lorenzana RD, LD
[2019-01-29] MEDS ORDERED: SODIUM CHLORIDE 0.9% 250ML 250 ML ONE (20:41)
--- NOTE | 2019-01-29 21:07 | NUR ---
patient is in bed,awake alert oriented. family members on bed side. blood the last unit started. vitals checked, tylenol prn given for abdominal pain, will continue to monitor.
[2019-01-30] VITALS (8 sets, daily range): BP systolic 136–150; BP diastolic 61–75
[2019-01-30] MEDS: METRONIDAZOLE 500MG/NS 100ML 100 ML IV SCH ×4 (00:17→17:11)
[2019-01-30] MEDS ORDERED: PANTOPRAZOLE 40 MG 10ML VIAL IV STA (01:10)
[2019-01-30] MEDS ORDERED: PANTOPRAZOLE 40 MG 10ML VIAL IV SCH (01:15)
[2019-01-30] MEDS: SODIUM CHLORIDE 0.9% 1000ML 1,000 ML IV SCH ×3 (02:50→17:11)
--- NOTE | 2019-01-30 03:20 | NUR ---
patient just had another bowel movement, sent the sample to the lab.
[2019-01-30] MEDS: CEFEPIME 2 GM/NS 0.9% 100 ML 100 ML IV SCH ×3 (05:56→22:22)
[2019-01-30 05:58] LABS: BASOPHILS % 0.1 % (0.0-1.0); EOSINOPHILS % 0.1 % (0.0-6.0); HEMOGLOBIN 10.7 g/dL (14.0-18.0); LYMPHOCYTES # (AUTO) 0.6 (1.0-3.2); LYMPHOCYTES % 3.6 % (18.0-39.1); MEAN CORPUSCULAR HEMOGLOBIN 30.5 pg (28-32); MEAN CORPUSCULAR HGB CONC 34.5 g/dL (31-35); MEAN CORPUSCULAR VOLUME 88.3 fL (81-99); MONOCYTES # (AUTO) 0.7 (0.2-0.8); MONOCYTES % 4.8 % (4.4-11.3); NEUTROPHILS # (AUTO) 13.7 (2.1-6.9); NEUTROPHILS % 90.5 % (38.7-80.0); PLATELET COUNT 116 x10e3/uL (140-360); RED BLOOD COUNT 3.51 x10e6/uL (4.3-5.7); RED CELL DISTRIBUTION WIDTH 18.6 % (11.7-14.4)
[2019-01-30 06:15] LABS: ALANINE AMINOTRANSFERASE 22 IU/L (0-55); ALBUMIN 1.5 g/dL (3.5-5.0); ALBUMIN/GLOBULIN RATIO 0.4 (0.8-2.0); ALKALINE PHOSPHATASE 168 IU/L (40-150); ANION GAP 11.1 mmol/L (8-16); BLOOD UREA NITROGEN 19 mg/dL (7-26); BUN/CREATININE RATIO 26 (6-25); CALCIUM 7.1 mg/dL (8.4-10.2); CARBON DIOXIDE 22 mmol/L (22-29); CHLORIDE 101 mmol/L (98-107); CREATININE, SERUM 0.73 mg/dL (0.72-1.25); EST GLOMERULAR FILTRATION RATE > 60 ML/MIN (60-); GLUCOSE 106 mg/dL (74-118); POTASSIUM 3.1 mmol/L (3.5-5.1); SODIUM 131 mmol/L (136-145)
--- NOTE | 2019-01-30 07:05 | NUR ---
Pt received resting in bed with family at bedside. Alert and oriented x3. Oriented to staff and surroundings. Encouraged to press call [facility] if help needed. Emotional support given. Pt with left chest wall port-A-cath receiving IV fluid as ordered. Will monitor
[2019-01-30] MEDS: ACETAMINOPHEN 325 MG TAB PO PRN (07:15)
[2019-01-30] MEDS: INSULIN REGULAR, HUMAN 100 UNIT/1 ML 3ML VIAL SQ SCH ×4 (07:30→21:03)
[2019-01-30] MEDS: PANTOPRAZOLE 40 MG 10ML VIAL IV SCH ×2 (08:34→20:59)
[2019-01-30 08:43] LABS: WBC,FECAL (FECAL LACTOFERRIN) POSITIVE (NEGATIVE)
[2019-01-30 10:02] LABS: C DIFFICILE TOXIN A&B AMP PROB **POSITIVE** (NEGATIVE)
[2019-01-30] MEDS ORDERED: POTASSIUM CHLORIDE 10MEQ EA PO SCH ×2 (10:15→12:00)
--- NOTE | 2019-01-30 10:17 | NUR ---
Dr. Danae Isaac notified regarding positive C. Diff. Orders given. Will follow up
[2019-01-30] MEDS ORDERED: POTASSIUM CHLORIDE 20 MEQ TAB CR PO ONE ×2 (10:30→12:00)
[2019-01-30] MEDS: VANCOMYCIN 250MG/5ML ORAL SOLN PO SCH ×2 (10:59→17:11)
[2019-01-30] MEDS: DICYCLOMINE HCL 20 MG TAB PO SCH ×2 (10:59→22:22)
--- NOTE | 2019-01-30 13:50 | NUR ---
Pt has had 6 BM during this shift. Dr. Danae Isaac notified. Lomotil 2 caps ordered. Pain c/o pain Dr. Cuba paged
[2019-01-30] MEDS ORDERED: DIPHENOXYLATE/ATROPINE TAB PO ONE (14:00)
[2019-01-30] MEDS: HYDROCODONE/APAP 5MG-325MG TAB PO PRN (14:13)
[2019-01-30] MEDS ORDERED: BISMUTH SUBSALICYLATE 262 MG/15 ML 8OZ BTL PO PRN (15:30)
--- NOTE | 2019-01-30 16:07 | Consultation ---
DATE OF CONSULTATION: 01/29/[address] Willard Barber. HISTORY OF PRESENT ILLNESS: Mr. Lee is a 63-year-old male, who presented with weakness. Subsequently, he was found to have a very low hemoglobin with a high white count. Subsequently, admitted for further evaluation and treatment. HISTORY OF PAST ILLNESS: History of cancer of the prostate, history of cancer of pancreas with liver metastases. Subsequently, has been treated by systemic chemotherapy at Dr. Fleming's office. The patient was supposed to have gotten the systemic chemotherapy again, however, had to be hospitalized because of excessive weakness. SOCIAL HISTORY: Noncontributory. FAMILY HISTORY: Noncontributory. ALLERGIES: REPORTED NONE. MEDICATIONS: At this time: 1. Nexium. 2. Hydrocodone. 3. Metoprolol. 4. Ondansetron. 5. Tresiba. REVIEW OF SYSTEMS: HEENT: Normal. CARDIAC: Normal. RESPIRATORY: Pleural effusion. GI: Cancer of the pancreas with liver metastases, ascites. : History of cancer of the prostate. NEUROENDOCRINE: At the present time hyperglycemic. PHYSICAL EXAMINATION: GENERAL: A very cachectic male, anemic. NECK: No palpable adenopathy. HEART: Within normal limits. LUNGS: Clear. ABDOMEN: Soft. Questionable ascites. Liver is felt 2 inches down the costal margin. RECTAL: Deferred. CENTRAL NERVOUS SYSTEM: Essentially normal. EXTREMITIES: 1+ pitting edema of the feet. LABORATORY DATA: Lab shows a hemoglobin of 8.1 on 01/28/2019, however, with hydration the hemoglobin dropped down to 6.2, hematocrit of 18.9, white count of 13,490, platelets of 117,000 with a marked shift to the left. Chemistry shows a sodium of 129, potassium 3.8, chloride is 93, CO2 23, BUN 15, and creatinine 1.0. Lactic acid high at 4.8. Calcium low at 7.8. Alkaline phosphatase of 249. Total protein is low at 6.1, albumin low at 1.8, and globulin is relatively high at 4.3. The patient's imaging consists of a CAT scan of the abdomen. The patient shows progression of disease with increase in the size of the pancreatic mass and number of intrahepatic metastases with osseous metastases to T10. Left internal biliary stent was also shown. IMPRESSION: 1. Cancer of the pancreas. 2. Liver metastases. 3. Anemia of chronic disease. 4. Bone metastases. 5. History of cancer of the prostate. 6. Left internal biliary stent. 7. T10 metastases. 8. Soft tissue distal rectal anal prominence. 9. Bilateral lung atelectasis versus bronchopneumonia. 10. Leukocytosis. 11. Hyponatremia. 12. Diabetes mellitus. 13. Hypoproteinemia. 14. Hypoalbuminemia. 15. Hypocalcemia. PLAN, COMMENTS, AND SUGGESTIONS: Suggest best supportive care. Suggest blood transfusion. Terminal care for this far advanced malignancy, as the treatment of cancer of the pancreas the Gemzar is palliative treatment only. This was discussed at length with the patient's family, who understands the gravity of the situation. I have suggested the patient to go back to Dr. Danae Fleming after he is discharged. MD ERWIN Montes De Oca/STEPHANIE /[id number] cc: MD Mario Alberto Gutiérrez MD Maurice S Haddad, MD Jack Mullins, MD
[2019-01-30 17:50] LABS: C DIFFICILE TOXIN A&B AMP PROB **POSITIVE** (NEGATIVE)
[2019-01-30 18:46] LABS: BLOOD UREA NITROGEN 18 mg/dL (7-26); BUN/CREATININE RATIO 24 (6-25); CALCIUM 7.1 mg/dL (8.4-10.2); CARBON DIOXIDE 20 mmol/L (22-29); CHLORIDE 102 mmol/L (98-107); CREATININE, SERUM 0.76 mg/dL (0.72-1.25); EST GLOMERULAR FILTRATION RATE > 60 ML/MIN (60-); GLUCOSE 250 mg/dL (74-118); SODIUM 131 mmol/L (136-145)
--- NOTE | 2019-01-30 19:00 | NUR ---
Report received. Assumed care. Assessment done. See interventions. Family at bedside. Isolation precautions explained to family. Advised to wash hands with soap and water when leaving room.
[2019-01-30] MEDS: BALSAM PERU/CASTOR OIL 60 GM OINT...G. TP SCH (21:00)
[2019-01-31] VITALS: BP 130/105
[2019-01-31] MEDS: VANCOMYCIN 250MG/5ML ORAL SOLN PO SCH ×5 (00:19→23:04)
[2019-01-31] MEDS: METRONIDAZOLE 500MG/NS 100ML 100 ML IV SCH ×5 (00:19→23:04)
[2019-01-31] MEDS: HYDROCODONE/APAP 5MG-325MG TAB PO PRN ×4 (00:24→23:04)
[2019-01-31] MEDS: SODIUM CHLORIDE 0.9% 1000ML 1,000 ML IV SCH ×3 (00:48→17:00)
[2019-01-31 04:00] VITALS: BP 148/71
[2019-01-31] MEDS: DICYCLOMINE HCL 20 MG TAB PO SCH ×3 (05:33→22:00)
[2019-01-31] MEDS: CEFEPIME 2 GM/NS 0.9% 100 ML 100 ML IV SCH ×3 (05:33→22:00)
[2019-01-31] MEDS: INSULIN REGULAR, HUMAN 100 UNIT/1 ML 3ML VIAL SQ SCH ×4 (07:30→21:00)
[2019-01-31 08:00] VITALS: BP 141/72
[2019-01-31] MEDS: BALSAM PERU/CASTOR OIL 60 GM OINT...G. TP SCH ×2 (09:02→21:00)
[2019-01-31] MEDS: PANTOPRAZOLE 40 MG 10ML VIAL IV SCH ×2 (09:22→20:19)
[2019-01-31] MEDS ORDERED: SODIUM CHLORIDE 452MG TAB PO ONE (10:00)
[2019-01-31] MEDS ORDERED: SODIUM BICARBONATE 650 MG TAB PO ONE (10:00)
[2019-01-31] MEDS ORDERED: ALBUMIN 25% 12.5GM 0.25 GM/ML BTL IV ONE (10:30)
[2019-01-31 12:00] VITALS: BP 140/70
[2019-01-31 16:45] VITALS: BP 130/55
--- NOTE | 2019-01-31 19:52 | NUR ---
Received change of shift report from AM nurse. Walking rounds completed.
[2019-01-31 20:00] VITALS: BP 151/73
[2019-02-01] VITALS (8 sets, daily range): BP systolic 132–158; BP diastolic 67–88
[2019-02-01] MEDS: SODIUM CHLORIDE 0.9% 1000ML 1,000 ML IV SCH ×3 (01:00→16:52)
--- NOTE | 2019-02-01 01:00 | NUR ---
Patient requested pain med. Given as ordered by MD. Pain =5-6 GEN. Continue monitor.
[2019-02-01] MEDS: HYDROCODONE/APAP 5MG-325MG TAB PO PRN ×4 (03:01→20:39)
--- NOTE | 2019-02-01 04:49 | NUR ---
Patient resting quitly at this time.
[2019-02-01] MEDS: CEFEPIME 2 GM/NS 0.9% 100 ML 100 ML IV SCH ×3 (05:23→20:38)
[2019-02-01] MEDS: DICYCLOMINE HCL 20 MG TAB PO SCH ×3 (05:23→20:38)
[2019-02-01] MEDS: VANCOMYCIN 250MG/5ML ORAL SOLN PO SCH ×4 (05:23→23:17)
[2019-02-01] MEDS: METRONIDAZOLE 500MG/NS 100ML 100 ML IV SCH ×4 (05:23→23:17)
[2019-02-01] MEDS: INSULIN REGULAR, HUMAN 100 UNIT/1 ML 3ML VIAL SQ SCH ×4 (07:30→20:43)
[2019-02-01 08:29] LABS: BASOPHILS % 0.1 % (0.0-1.0); EOSINOPHILS % 0.4 % (0.0-6.0); HEMATOCRIT 30.9 % (38.2-49.6); HEMOGLOBIN 10.3 g/dL (14.0-18.0); LYMPHOCYTES # (AUTO) 0.6 (1.0-3.2); LYMPHOCYTES % 6.8 % (18.0-39.1); MEAN CORPUSCULAR HEMOGLOBIN 30.4 pg (28-32); MEAN CORPUSCULAR HGB CONC 33.3 g/dL (31-35); MEAN CORPUSCULAR VOLUME 91.2 fL (81-99); MONOCYTES # (AUTO) 0.6 (0.2-0.8); MONOCYTES % 7.2 % (4.4-11.3); NEUTROPHILS # (AUTO) 7.2 (2.1-6.9); NEUTROPHILS % 84.7 % (38.7-80.0); PLATELET COUNT 96 x10e3/uL (140-360); RED BLOOD COUNT 3.39 x10e6/uL (4.3-5.7); RED CELL DISTRIBUTION WIDTH 18.6 % (11.7-14.4)
[2019-02-01] MEDS: BALSAM PERU/CASTOR OIL 60 GM OINT...G. TP SCH ×2 (08:46→20:38)
[2019-02-01] MEDS: PANTOPRAZOLE 40 MG 10ML VIAL IV SCH ×2 (08:46→20:38)
[2019-02-01 09:02] LABS: ALANINE AMINOTRANSFERASE 12 IU/L (0-55); ALBUMIN 1.8 g/dL (3.5-5.0); ALBUMIN/GLOBULIN RATIO 0.5 (0.8-2.0); ALKALINE PHOSPHATASE 155 IU/L (40-150); ANION GAP 10.7 mmol/L (8-16); BLOOD UREA NITROGEN 11 mg/dL (7-26); BUN/CREATININE RATIO 18 (6-25); CALCIUM 7.2 mg/dL (8.4-10.2); CARBON DIOXIDE 20 mmol/L (22-29); CHLORIDE 107 mmol/L (98-107); EST GLOMERULAR FILTRATION RATE > 60 ML/MIN (60-); GLUCOSE 104 mg/dL (74-118); SODIUM 135 mmol/L (136-145)
[2019-02-01 09:08] LABS: POTASSIUM 2.7 mmol/L (3.5-5.1)
[2019-02-01] MEDS ORDERED: POTASSIUM CHLORIDE 20MEQ/100ML 300 ML IV ONE (10:45)
[2019-02-01] MEDS ORDERED: SODIUM BICARBONATE 650 MG TAB PO NR (12:30)
[2019-02-01] MEDS ORDERED: ALBUMIN 25% 12.5GM 0.25 GM/ML BTL IV ONE (12:30)
[2019-02-02] VITALS (10 sets, daily range): BP systolic 139–168; BP diastolic 70–84
[2019-02-02] MEDS: SODIUM CHLORIDE 0.9% 1000ML 1,000 ML IV SCH ×3 (00:13→17:11)
[2019-02-02] MEDS: HYDROCODONE/APAP 5MG-325MG TAB PO PRN ×4 (02:52→22:23)
[2019-02-02] MEDS: DICYCLOMINE HCL 20 MG TAB PO SCH ×2 (05:32→13:40)
[2019-02-02] MEDS: METRONIDAZOLE 500MG/NS 100ML 100 ML IV SCH ×3 (05:32→17:11)
[2019-02-02 05:48] LABS: BASOPHILS % 0.1 % (0.0-1.0); EOSINOPHILS % 0.5 % (0.0-6.0); HEMATOCRIT 26.1 % (38.2-49.6); HEMOGLOBIN 8.8 g/dL (14.0-18.0); LYMPHOCYTES # (AUTO) 0.5 (1.0-3.2); LYMPHOCYTES % 6.9 % (18.0-39.1); MEAN CORPUSCULAR HEMOGLOBIN 30.6 pg (28-32); MEAN CORPUSCULAR HGB CONC 33.7 g/dL (31-35); MEAN CORPUSCULAR VOLUME 90.6 fL (81-99); MONOCYTES # (AUTO) 0.5 (0.2-0.8); NEUTROPHILS # (AUTO) 6.4 (2.1-6.9); PLATELET COUNT 82 x10e3/uL (140-360); RED BLOOD COUNT 2.88 x10e6/uL (4.3-5.7); RED CELL DISTRIBUTION WIDTH 18.6 % (11.7-14.4)
[2019-02-02 06:00] LABS: ALANINE AMINOTRANSFERASE 9 IU/L (0-55); ALBUMIN 2.2 g/dL (3.5-5.0); ALBUMIN/GLOBULIN RATIO 0.7 (0.8-2.0); ALKALINE PHOSPHATASE 153 IU/L (40-150); ANION GAP 11.2 mmol/L (8-16); BLOOD UREA NITROGEN 11 mg/dL (7-26); BUN/CREATININE RATIO 18 (6-25); CARBON DIOXIDE 20 mmol/L (22-29); CHLORIDE 109 mmol/L (98-107); EST GLOMERULAR FILTRATION RATE > 60 ML/MIN (60-); GLUCOSE 143 mg/dL (74-118); POTASSIUM 3.2 mmol/L (3.5-5.1); SODIUM 137 mmol/L (136-145)
[2019-02-02 06:25] LABS: CALCIUM 6.7 mg/dL (8.4-10.2)
[2019-02-02] MEDS: CEFEPIME 2 GM/NS 0.9% 100 ML 100 ML IV SCH ×3 (06:51→21:48)
[2019-02-02 07:10] LABS: PLATELET ESTIMATE MODERATELY DECREASED
[2019-02-02] MEDS: INSULIN REGULAR, HUMAN 100 UNIT/1 ML 3ML VIAL SQ SCH ×4 (07:21→21:00)
[2019-02-02] MEDS: PANTOPRAZOLE 40 MG 10ML VIAL IV SCH ×2 (08:34→21:48)
[2019-02-02] MEDS: BALSAM PERU/CASTOR OIL 60 GM OINT...G. TP SCH ×2 (08:34→22:03)
[2019-02-02] MEDS: VANCOMYCIN 250MG/5ML ORAL SOLN PO SCH ×3 (08:34→17:11)
[2019-02-02] MEDS ORDERED: ALBUMIN 25% 12.5GM 0.25 GM/ML BTL IV ONE (09:45)
[2019-02-02] MEDS ORDERED: POTASSIUM CHLORIDE 20 MEQ TAB CR PO NR (10:00)
[2019-02-02] MEDS ORDERED: OYST-CAL-D 500MG TABLET PO NR (10:00)
[2019-02-02] MEDS ORDERED: POTASSIUM CHLORIDE 20MEQ/100ML 200 ML IV ONE (10:00)
[2019-02-02] MEDS: SODIUM BICARBONATE 650 MG TAB PO SCH ×2 (11:39→21:48)
--- NOTE | 2019-02-02 14:40 | NUR ---
Visit made by the Spiritual Care Department Pastoral Visitor, Dominguez Huggins. PV provided pastoral presence, prayer, hospitality, communion, and supportive listening. Pastoral Visitor informed pt/family of the scope of [employer] and availability. GIDEON OREILLY Bezel [employer]utter Spiritual Care Department O: [phone] Pager: [phone] ([phone] calling from)
[2019-02-02] MEDS ORDERED: POTASSIUM CHLORIDE 20 MEQ TAB CR PO SCH (21:00)
[2019-02-03] MEDS: METRONIDAZOLE 500MG/NS 100ML 100 ML IV SCH ×3 (00:07→12:26)
[2019-02-03] MEDS: VANCOMYCIN 250MG/5ML ORAL SOLN PO SCH ×3 (00:07→12:57)
[2019-02-03 00:16] VITALS: BP 153/81
[2019-02-03] MEDS: HYDROCODONE/APAP 5MG-325MG TAB PO PRN ×3 (03:38→15:20)
[2019-02-03] MEDS: SODIUM CHLORIDE 0.9% 1000ML 1,000 ML IV SCH ×2 (03:38→08:48)
[2019-02-03 04:08] VITALS: BP 163/76
[2019-02-03 06:00] LABS: ALANINE AMINOTRANSFERASE 11 IU/L (0-55); ALBUMIN 2.6 g/dL (3.5-5.0); ALBUMIN/GLOBULIN RATIO 0.8 (0.8-2.0); ALKALINE PHOSPHATASE 184 IU/L (40-150); ANION GAP 13.1 mmol/L (8-16); BLOOD UREA NITROGEN 10 mg/dL (7-26); BUN/CREATININE RATIO 16 (6-25); CALCIUM 7.5 mg/dL (8.4-10.2); CARBON DIOXIDE 17 mmol/L (22-29); CHLORIDE 106 mmol/L (98-107); CREATININE, SERUM 0.64 mg/dL (0.72-1.25); EST GLOMERULAR FILTRATION RATE > 60 ML/MIN (60-); GLUCOSE 160 mg/dL (74-118); POTASSIUM 3.1 mmol/L (3.5-5.1); SODIUM 133 mmol/L (136-145)
[2019-02-03] MEDS: CEFEPIME 2 GM/NS 0.9% 100 ML 100 ML IV SCH ×2 (06:00→14:39)
--- NOTE | 2019-02-03 07:16 | NUR ---
patient condition throughout the night was stable, patient endorsed to next shift for continuity of care.
[2019-02-03 08:00] VITALS: BP 148/92
[2019-02-03] MEDS: INSULIN REGULAR, HUMAN 100 UNIT/1 ML 3ML VIAL SQ SCH ×3 (08:30→16:30)
[2019-02-03] MEDS ORDERED: POTASSIUM CHLORIDE 20 MEQ TAB CR PO NR (09:00)
[2019-02-03] MEDS: BALSAM PERU/CASTOR OIL 60 GM OINT...G. TP SCH (09:04)
[2019-02-03] MEDS: PANTOPRAZOLE 40 MG 10ML VIAL IV SCH (09:04)
[2019-02-03 09:45] VITALS: BP 148/92
[2019-02-03 12:00] VITALS: BP 131/74
--- NOTE | 2019-02-03 15:01 | NUR ---
ORDERS FOR HOME HEALTH CARE CHOICE LETTER SIGNED BY PT FOR [facility] PH: [phone] FAX: [phone] COPY OF CHOICE LETTER TO PT CLINICALS FAXED TO ABOVE NUMBER CONFIRMATION REC'D PT HAS MORPHINE PO AND ZOFRAN PO AT HOME FOR PAIN CONTROL PLAN DC HOME TODAY
[2019-02-03 16:00] VITALS: BP 155/80
[2019-02-03] MEDS ORDERED: HEPARIN SOD (PORCINE) 1000 UNIT/ML 10ML MDV IV ONE (17:00)
--- NOTE | 2019-02-03 17:30 | NUR ---
Patient verbalized understanding of d/c instructions. Discharged with [facility]. Port a cath heparinized with 1000 units of heparin in 5 mls of NS. Gibbs needle removed applied 2x2 gauze to left upper chest wall port.
--- NOTE | 2019-02-06 06:18 | Discharge Summary ---
Mr. Kelley is an unfortunate and very ill 63-year-old man with metastatic pancreatic cancer, who presented to the emergency room with a complaint of weakness, fever, abdominal discomfort and diarrhea. HOSPITAL COURSE: The patient was shown to be very anemic with a hemoglobin of 6.0 and white count 13.4. He was treated with broad-spectrum antibiotics. Clostridium difficile toxin was positive. He was seen in consultation by Dr. Chambers, as Dr. Fleming was out of town and Dr. Chambers noted that indeed he has metastatic pancreatic cancer with liver metastases with a history of prostate cancer as well. He noted that the current treatment of Gemzar is a palliative treatment. The patient was transfused with an improvement of his hemoglobin. With antibiotics, his diarrhea resolved and he admitted that he was "not eating much." I illustrated to the patient and his in Pashto language that if he do not eat, he would . They seemed to express some understanding of this thought and by February 03, he was felt to be stable enough to be discharged home. Home health was arranged. He will follow up with Dr. Fleming as an outpatient. DISCHARGE DIAGNOSES: 1. Metastatic pancreatic cancer. 2. Severe anemia. 3. Sepsis. 4. Clostridium difficile. 5. Diabetes. MD ILANA Silva/STEPHANIE /[id number] cc: MD Haylie Gutiérrez MD Maurice S Haddad, MD Ramon A Pineda, MD
== END 2019-02-03 17:30 | disposition home health service (06) | DRG 871 ==
LOC: ER 18:53 → ERHOLD 01-29 00:51 → IMCU 01-29 02:15
PROVIDERS: ADMIT Internal Medicine Cardiovascular Disease; ATTEND Internal Medicine Cardiovascular Disease
PROC: 30243N1 Transfusion of Nonautologous Red Blood Cells into Central Vein, Percutaneous Approach (ICD-10-PCS; principal; 2019-01-29)
DX: A41.9 Sepsis, unspecified organism (principal); R65.21 Severe sepsis with septic shock; C78.7 Secondary malignant neoplasm of liver and intrahepatic bile duct; C79.51 Secondary malignant neoplasm of bone; E87.1 Hypo-osmolality and hyponatremia; C25.9 Malignant neoplasm of pancreas, unspecified; A04.72 Enterocolitis due to Clostridium difficile, not specified as recurrent; R18.0 Malignant ascites; E87.2 Acidosis; D72.829 Elevated white blood cell count, unspecified; E11.9 Type 2 diabetes mellitus without complications; E88.09 Other disorders of plasma-protein metabolism, not elsewhere classified; D64.9 Anemia, unspecified; Z85.46 Personal history of malignant neoplasm of prostate; D63.0 Anemia in neoplastic disease; E83.51 Hypocalcemia; E77.8 Other disorders of glycoprotein metabolism
CPT/HCPCS: 36415; 71045; 74177; 80048; 80053; 81001; 82150; 82270; 82550; 82553; 82948; 83518; 83605; 83630; 83690; 83735; 84484; 85014; 85018; 85025; 86850; 86900; 86920; 87040; 87045; 87070; 87086; 87177; 87400; 87493; 96361; 99284; J1817; J2405; J3480; J7030; J7050; P9016; Q9967

== ENCOUNTER 2019-02-14 07:36 | Inpatient (IN) | payer OTHER ==
[~2019-02-14] VITALS: Ht 170.2 cm; Wt 76.7 kg
[2019-02-14] MEDS ORDERED: ALBUTEROL SULF 0.083% NEB SOLN 3 ML NEB NEB STA (07:39)
[2019-02-14] MEDS ORDERED: DILTIAZEM HCL 5 MG/ML 5 ML VIAL IV STA (07:45)
[2019-02-14] MEDS ORDERED: ACETAMINOPHEN 325 MG TAB PO PRN (07:45)
[2019-02-14] MEDS ORDERED: SODIUM CHLORIDE 0.9% 1000ML 1,000 ML ONE ×2 (07:59→09:20)
[2019-02-14] MEDS ORDERED: SODIUM CHLORIDE 0.9% 1000ML 1,000 ML IV ONE ×2 (08:00→09:00)
[2019-02-14] MEDS ORDERED: DIGOXIN INJ 0.25 MG/ML 2 ML AMP IV ONE (08:00)
--- NOTE | 2019-02-14 08:11 | NUR ---
bipap per md in place on pt. tolerating well. 02/07; rate 14; 60%
[2019-02-14] MEDS: PIPER-TAZ 3.375 GM 50 ML IV SCH ×3 (08:15→20:00)
[2019-02-14 08:26] LABS: BASOPHILS % 0.3 % (0.0-1.0); EOSINOPHILS % 0.3 % (0.0-6.0); HEMATOCRIT 31.5 % (38.2-49.6); HEMOGLOBIN 10.3 g/dL (14.0-18.0); LYMPHOCYTES # (AUTO) 0.7 (1.0-3.2); LYMPHOCYTES % 18.9 % (18.0-39.1); MEAN CORPUSCULAR HEMOGLOBIN 31.2 pg (28-32); MEAN CORPUSCULAR HGB CONC 32.7 g/dL (31-35); MEAN CORPUSCULAR VOLUME 95.5 fL (81-99); MONOCYTES # (AUTO) 0.1 (0.2-0.8); NEUTROPHILS # (AUTO) 2.8 (2.1-6.9); PLATELET COUNT 190 x10e3/uL (140-360)
[2019-02-14 08:27] LABS: ABG HCO3 24 mmol/L (23-28); ABG PCO2 32 mmHg (41-51); ABG PH 7.46 (7.31-7.41); ABG PO2 78 mmHg (80-105)
--- NOTE | 2019-02-14 08:44 | Diagnostic Imaging Report ---
EXAMINATION: CHEST SINGLE (PORTABLE) INDICATION: Trouble breathing, chest pain. COMPARISON: Chest radiograph 01/28/2019. FINDINGS: TUBES and LINES: Left subclavian Port-A-Cath with tip in the upper SVC. LUNGS: Low lung volumes. Interval development of multifocal opacities in the left mid and bilateral lower lung zones, most confluent in the left. PLEURA: No pleural effusion or pneumothorax. HEART AND MEDIASTINUM: The cardiomediastinal silhouette is unremarkable. BONES AND SOFT TISSUES: No acute osseous lesion. Soft tissues are unremarkable. UPPER ABDOMEN: No free air under the diaphragm. IMPRESSION: Interval development of multifocal opacities, asymmetric to the left, suggestive of pneumonia and/or pulmonary edema. Signed by: Dr. Geovanni Gruber MD on 02/14/2019 8:40 AM
[2019-02-14 08:47] LABS: ALANINE AMINOTRANSFERASE 20 IU/L (0-55); ALBUMIN 2.2 g/dL (3.5-5.0); ALBUMIN/GLOBULIN RATIO 0.5 (0.8-2.0); ALKALINE PHOSPHATASE 423 IU/L (40-150); AMYLASE 14 U/L (25-125); ANION GAP 20.6 mmol/L (8-16); BLOOD UREA NITROGEN 34 mg/dL (7-26); BUN/CREATININE RATIO 31 (6-25); CALCIUM 8.7 mg/dL (8.4-10.2); CARBON DIOXIDE 22 mmol/L (22-29); CHLORIDE 96 mmol/L (98-107); CREATINE KINASE 17 IU/L (30-200); EST GLOMERULAR FILTRATION RATE > 60 ML/MIN (60-); GLUCOSE 96 mg/dL (74-118); POTASSIUM 4.6 mmol/L (3.5-5.1); SODIUM 134 mmol/L (136-145)
[2019-02-14 08:56] LABS: LIPASE < 4 U/L (8-78)
[2019-02-14] MEDS: SODIUM CHLORIDE 0.9% 1000ML 1,000 ML IV SCH ×2 (08:59→18:02)
[2019-02-14] MEDS: LEVOFLOXACIN 750MG/D5W 150ML 150 ML IV SCH (08:59)
[2019-02-14 09:08] LABS: INR 1.15; PROTHROMBIN TIME 15.3 seconds (11.9-14.5)
[2019-02-14] MEDS: MORPHINE SULFATE INJ 4 MG/ML INJ 1ML IV PRN (09:21)
[2019-02-14] MEDS: ONDANSETRON HCL INJ 2MG/ML 2ML 2 MG/ML VIAL IV PRN (09:21)
--- NOTE | 2019-02-14 09:26 | NUR ---
updated pt/fm plan of care and results. vss. improving. notifed bj in lab of need to repeat lactic
[2019-02-14] MEDS ORDERED: DEXTROSE 50% SYRINGE 50 ML IV PRN (10:30)
--- NOTE | 2019-02-14 11:28 | Diagnostic Imaging Report ---
CT of the chest, with contrast. History: Shortness of breath, hypoxia Comparison: No chest CT comparisons available for review, comparison is made to CT of the abdomen and pelvis dated 01/28/2019 Technique: Multidetector CT scanning of the chest was performed from the level of the thoracic inlet to the upper abdomen after intravenous contrast administration. Thin collimation scanning through the pulmonary arteries was performed during the early phase. Coronal MIP reformations were obtained. DOSE REDUCTION: The examination was performed according to departmental dose-optimization program which includes automated exposure control, adjustment of the mA and/or kV according to patient size and/or use of iterative reconstruction technique. Discussion: There is no axillary, mediastinal, or hilar lymphadenopathy. The heart is within normal limits of size. There is no pericardial effusion. The thoracic aorta is of normal course and caliber. The main pulmonary artery is normal in size. No filling defects are identified within the pulmonary artery branches to indicate acute pulmonary embolism. The trachea and central airways are clear. There is dense consolidation in the left lower lobe with air bronchograms. Patchy opacities are present in the right upper, right middle, lingula, and left upper lobe. Findings are concerning for multifocal pneumonia which is worse in the left lower lobe. Trace bilateral pleural effusions are present. The esophagus is fluid-filled. Limited evaluation of the upper abdomen demonstrates multiple hypodense hepatic metastasis throughout both lobes of the liver. A biliary stent is partially visualized. There is intrahepatic biliary ductal dilatation. Small volume ascites is present. No acute osseous abnormalities are identified. There is redemonstration of a mixed sclerotic and lytic lesion in the T10 vertebral body which is likely osseous metastasis. IMPRESSION: 1. No evidence of pulmonary embolism. 2. Multifocal pneumonia which is most pronounced in the left lower lobe. 3. Trace bilateral pleural effusions. Small volume ascites. 4. Hepatic metastasis which are grossly stable in size when compared to abdominal CT dated 01/28/2019 Signed by: Isak Hurtado MD on 02/14/2019 11:25 AM
[2019-02-14] MEDS ORDERED: SODIUM CHLORIDE 0.9% 50ML 50 ML ONE (13:10)
[2019-02-14] MEDS ORDERED: IOPAMIDOL 370 MG/ML 200 ML INFUS..BTL INJ ONE (13:11)
[2019-02-14 13:36] LABS: BAND NEUTROPHILS % (MANUAL) 9 %; LYMPHOCYTES % (MANUAL) 19 % (19-48); MONOCYTES % (MANUAL) 2 % (3.4-9.0); NEUTROPHILS % (MANUAL) 70 % (40-74); PLATELET ESTIMATE ADEQUATE; PLATELET MORPHOLOGY COMMENT NORMAL; RBC MORPHOLOGY COMMENT NORMAL
[2019-02-14 13:39] LABS: ANISOCYTOSIS SLIGHT
--- NOTE | 2019-02-14 13:48 | NUR ---
pt seen by shanel quinteros and terence so far. vss.
[2019-02-14] MEDS ORDERED: HYDROCODONE/APAP 10MG-325MG TAB PO PRN (14:00)
--- NOTE | 2019-02-14 14:07 | NUR ---
pallative yazan wells here seeing pt
--- NOTE | 2019-02-14 14:55 | NUR ---
WAS CALLED TO ED PT WAS CONSULTING WITH PALLIATIVE CARE NURSE ASKING ABOUT ADVANCED DIRECTIVES AND OOH DNR. BEING ADMITTED FOR FEVER TO ICU, ASKED FAMILY WHAT IS THE GOAL FOR DISCHARGE, THEY STATE HOME WITH HOSPICE. TOLD ABOUT DIFFERENT COMPANIES, FAMILY CHOSE TO SIGN FOR [facility]. PUT WITH PAPERWORK AND TOLD MELISSA THE ICU NURSE THE HOSPICE CHOICE AND THE COMPANY WILL BE MEETING WITH THE FAMILY TO SIGN UP FOR SERVICES UPON DISCHARGE AND COMPLETE THE OOH-DNR FOR TRANSPORT HOME.
--- NOTE | 2019-02-14 15:17 | NUR ---
ekg changes noted on telemetry and 12 lead repeated and shown to er md; no further orders.
[2019-02-14] MEDS: INSULIN REGULAR, HUMAN 100 UNIT/1 ML 3ML VIAL SQ SCH ×3 (15:20→20:05)
--- NOTE | 2019-02-14 15:22 | NUR ---
per hold insulin d/t pt not eating
--- NOTE | 2019-02-14 15:39 | NUR ---
off bipap per md; nc at 3 lpm sats 100%; pt now dnr and palliative care.
[2019-02-14 17:23] LABS: CREATINE KINASE MB 0.9 ng/mL (0-5.0)
[2019-02-14 17:30] VITALS: BP 112/62
--- NOTE | 2019-02-14 17:30 | NUR ---
Received patient from ER. Awake, Alert, lying in bed with eyes open. Family at bedside. Denies pain at this time. PIV to left AC intact with NS 125 ml/hr as ordered.
--- NOTE | 2019-02-14 18:03 | History and Physical ---
FAMILY PHYSICIAN: Mario Alberto Claros MD Mr. Kelley is an unfortunate 63-year-old man with metastatic pancreatic cancer. He was brought to the emergency room for shortness of breath and fever. HISTORY OF PRESENT ILLNESS: The patient's family say that he has been at home now for a couple of weeks, not doing well, not eating or drinking and developed shortness of breath and fever this morning. PAST MEDICAL HISTORY: Significant for first hospitalization at [facility] in September 2018 for neutropenic fever and 1st chemotherapy. He also had another hospitalization on January 29, 2019 for sepsis, anemia, and pancreatic cancer. He has had chemotherapies. HOME MEDICATIONS: Include Nexium 40 mg daily, metoprolol 100 mg daily, ondansetron, Tresiba but 25 units b.i.d. as needed. PHYSICAL EXAMINATION: GENERAL: At this time shows a thin, wasted Latin-Iraqi man, who is awake on BiPAP. VITAL SIGNS: Blood pressure 100/60, presenting temperature was 106. PERTINENT LABORATORY STUDIES: Show white count 3.6, hemoglobin 10.3, glucose 96. Lactic acid elevated examination head, eyes, ears, nose, and throat unremarkable thorax lungs are rhonchi especially on the right lung heart regular tachycardia. No murmurs. Abdomen wasted. Active bowel sounds. Extremities no cyanosis, clubbing, or edema. LABORATORY DATA: EKG shows sinus tachycardia, creatinine 1.1. ASSESSMENT: 1. Sepsis. 2. Probable pneumonia. 3. Pancreatic cancer. PLAN: The patient will be given IV fluids, antibiotics, and request for CAT scan of the chest to rule out pulmonary emboli. His prognosis is grim. I have discussed with Dr. Fleming and we will get ID consultation as well. Critical care consultation with Dr. Davis. Thank you for asking me to see him in consultation. MD ILANA Silva/STEPHANIE /[id number] cc: MD Chepe Mims MD Zaher Shebib, MD
--- NOTE | 2019-02-14 19:15 | NUR ---
Report given to assistant casino shift manager. patient lying in bed with eyes open. denies pain at this time. family members at bedside. respiration even and unlabored without SOB. O2 3L NC in placed. Call light in reach.
[2019-02-14 20:00] VITALS: BP 99/57
--- NOTE | 2019-02-14 20:00 | NUR ---
PATIENT RESTING COMFORTABLY IN BED, NO SIGNS OF DISTRESS NOTED. NASAL CANNULA INTACT AND RUNNING AT 4 LITERS AND FAMILY MEMBERS AT BEDSIDE. IV FLUIDS ARE RUNNING AT ORDERED RATE AND PATIENT VOICES NO PAIN AT THIS TIME. BED IN LOWEST POSITION, BOTH SIDE RAILS ARE UP, CALL LIGHT IS WITHIN EASY REACH, WILL CONTINUE TO MONITOR.
--- NOTE | 2019-02-14 20:43 | Consultation ---
DATE OF CONSULTATION: Pulmonary/Critical Care Consultation CHIEF COMPLAINT: Dyspnea and pulmonary infiltrates. HISTORY OF PRESENT ILLNESS: The patient is a 63-year-old man with metastatic prostate cancer. He recently required hospitalization. He was discharged home about a week ago after requiring blood transfusion for anemia. He was continued on Gemzar as palliative care. He now returns with difficulty breathing and congestion. He was seen in the emergency department and started on BiPAP. PAST MEDICAL HISTORY: 1. Metastatic prostate cancer. 2. Diabetes. 3. Anemia secondary to chronic blood loss. PAST SURGICAL HISTORY: Status post Port-A-Cath. SOCIAL HISTORY: The patient quit smoking 30 years ago. He is not a drinker. FAMILY HISTORY: Family history is significant for hypertension. REVIEW OF SYSTEMS: The patient is afebrile. The patient may have had some chills at home. He is not complaining of headache. There is no chest pain. He does have congestion and dyspnea. He reports some cough. He has no abdominal pain. He has no nausea or vomiting. He has no leg edema. PHYSICAL EXAMINATION: VITAL SIGNS: The patient is afebrile, the blood pressure is 97/76, the respiratory rate is 14, the pulse is 89, saturation is 100%. He is on BiPAP. HEENT: Shows no facial swelling or erythema. CARDIAC: Reveals regular rate and rhythm with normal S1 and S2. There are no murmurs or rubs heard. LUNGS: Auscultation of lungs shows crackles bilaterally. There is no wheezing. ABDOMEN: Soft, nontender. There is no rebound or guarding. EXTREMITIES: Show no leg edema or calf tenderness. There is no cyanosis or clubbing. SKIN: Shows no rashes. LABORATORY DATA: BUN to creatinine ratio is 34 to 1.1 and the other electrolytes are within normal limits. The hemoglobin is 10.3, white blood cell count is 3.6, the platelet count is 190. Blood gases; 7.46, 78, 32, and 24. RADIOGRAPHIC DATA: Chest CT shows multifocal infiltrates most prominent in the left lower lobe. There are hepatic metastases visible. IMPRESSION: 1. Healthcare-associated pneumonia with sepsis, present on admission. 2. Metastatic prostate cancer. 3. Anemia secondary to chronic blood loss. RECOMMENDATIONS: 1. The patient will continue antibiotics. 2. Wean off BiPAP as tolerated. 3. IV fluids. 4. The patient is a DNR and is opting for palliative care. MD ARTHUR Mims/STEPHANIE /[id number]
[2019-02-14 20:46] VITALS: BP 99/57
--- NOTE | 2019-02-14 21:34 | Consultation ---
DATE OF CONSULTATION: REASON FOR CONSULTATION: Sepsis infection. HISTORY OF PRESENT ILLNESS: This patient, who is a 63-year-old male. He was recently diagnosed with pancreatic cancer back in July and he does see Dr. Fleming as outpatient. He was on chemotherapy and he took it for few months. Unfortunately there is already metastasis to the liver, to the bone. The patient was in the hospital recently. He is coming with generalized weakness, fever, not feeling well, short of breath, edematous, distention of the abdomen. The patient came to emergency room, where he was evaluated and being admitted. The patient is currently seen in the emergency room. He is very weak. He complains of some diffuse abdominal discomfort. The patient, who also has history of diabetes mellitus and hypertension. But since he was diagnosed with pancreatic cancer, his overall status is getting progressively worse. This whole problem started back in July when he came with abdominal pain. There was a concern about a renal stone, but the CAT scan shows that he does have cancer with metastasis. The patient is being admitted and I am asked to see him. PAST MEDICAL HISTORY: Diabetes mellitus, hypertension, now most recently pancreatic cancer with metastasis. PAST SURGICAL HISTORY: Denies. ALLERGIES: NKA. SOCIAL HISTORY: He used to smoke and drink, but he quit more than 20 years ago. REVIEW OF SYSTEMS: CONSTITUTIONAL: He just really weak. HEENT: There is no headache, visual changes, hearing changes. GASTROINTESTINAL: There is some nausea. No vomiting. No diarrhea. There is abdominal distention. GENITOURINARY: There is no urgency or frequency. SKIN: There is no rash. JOINT: Chronic aches and pain. Family noted also there are some edema in lower extremities. LABORATORY DATA: White count 3.65, hemoglobin of 10.3. His sodium was 134, potassium 4.6, creatinine 1.10. BNP was 182. Blood cultures are still pending. The patient was admitted. He is currently on Zofran, diltiazem, levofloxacin, and Zosyn. The patient had a CT of the chest, which showed there is no pulmonary embolism, but multiple pneumonia with most pronounced in the left lower lobe. Trace pleural effusion. Hepatic metastasis. Chest x-ray, multifocal opacities. PHYSICAL EXAMINATION: GENERAL: He is currently alert, oriented, does not seem to be in acute distress. VITAL SIGNS: Stable, currently afebrile. HEENT: He is not icteric. Normocephalic. NECK: Supple. CHEST: Few crackles bilateral. COR: S1 and S2. ABDOMEN: Soft. Distended. Bowel sounds present but hypoactive. EXTREMITIES: No edema. SKIN: There is no rash. IMPRESSION: 1. Sepsis present on admission. 2. Pneumonia healthcare associated. 3. Pancreatic cancer with mets. 4. History of diabetes and history of hypertension. PLAN: Agree with Zosyn for the time being. Agree with blood cultures. Agree with urine cultures. Review of supportive care. I discussed with the family. The patient is DNR. Prognosis is remains poor because of overall condition. They are aware of that. We will follow with you. MD ELIU Lorenzo/MODL /[id number]
[2019-02-15] VITALS (8 sets, daily range): BP systolic 111–138; BP diastolic 63–71
[2019-02-15] MEDS: PIPER-TAZ 3.375 GM 50 ML IV SCH ×3 (01:06→18:22)
[2019-02-15] MEDS: SODIUM CHLORIDE 0.9% 1000ML 1,000 ML IV SCH ×2 (01:06→12:45)
[2019-02-15 01:15] LABS: CREATINE KINASE MB 0.8 ng/mL (0-5.0)
[2019-02-15 06:13] LABS: BASOPHILS % 0.2 % (0.0-1.0); HEMATOCRIT 21.2 % (38.2-49.6); LYMPHOCYTES # (AUTO) 0.4 (1.0-3.2); LYMPHOCYTES % 4.7 % (18.0-39.1); MEAN CORPUSCULAR HEMOGLOBIN 30.9 pg (28-32); MEAN CORPUSCULAR HGB CONC 32.1 g/dL (31-35); MEAN CORPUSCULAR VOLUME 96.4 fL (81-99); MONOCYTES # (AUTO) 0.4 (0.2-0.8); MONOCYTES % 4.4 % (4.4-11.3); NEUTROPHILS % 90.1 % (38.7-80.0); PLATELET COUNT 102 x10e3/uL (140-360); RED CELL DISTRIBUTION WIDTH 22.2 % (11.7-14.4)
[2019-02-15 06:27] LABS: HEMOGLOBIN 6.8 g/dL (14.0-18.0)
[2019-02-15] MEDS: MORPHINE SULFATE INJ 4 MG/ML INJ 1ML IV PRN (06:28)
[2019-02-15] MEDS: ONDANSETRON HCL INJ 2MG/ML 2ML 2 MG/ML VIAL IV PRN (06:28)
[2019-02-15 06:29] LABS: ALANINE AMINOTRANSFERASE 14 IU/L (0-55); ALBUMIN 1.4 g/dL (3.5-5.0); ALBUMIN/GLOBULIN RATIO 0.4 (0.8-2.0); ALKALINE PHOSPHATASE 241 IU/L (40-150); ANION GAP 11.5 mmol/L (8-16); BLOOD UREA NITROGEN 35 mg/dL (7-26); BUN/CREATININE RATIO 42 (6-25); CALCIUM 7.6 mg/dL (8.4-10.2); CARBON DIOXIDE 27 mmol/L (22-29); CHLORIDE 101 mmol/L (98-107); CREATININE, SERUM 0.83 mg/dL (0.72-1.25); EST GLOMERULAR FILTRATION RATE > 60 ML/MIN (60-); GLUCOSE 80 mg/dL (74-118); POTASSIUM 4.5 mmol/L (3.5-5.1); SODIUM 135 mmol/L (136-145)
[2019-02-15] MEDS ORDERED: SODIUM CHLORIDE 0.9% 250ML 250 ML IV ONE (07:15)
--- NOTE | 2019-02-15 07:20 | NUR ---
CALLED DR. SILVA ANSWERING SERVICE TO REPORT THE PATIENT'S CRITICAL HEMOGLOBIN LAB. ORDERED TO GIVE 2 UNITS OF BLOOD, SPOKE WITH PATIENT AND AND BOTH AGREED TO GO FORWARD WITH TRANSFUSION.
[2019-02-15] MEDS: PANTOPRAZOLE SOD 40 MG TABEC PO SCH (07:30)
[2019-02-15] MEDS: INSULIN REGULAR, HUMAN 100 UNIT/1 ML 3ML VIAL SQ SCH ×4 (07:30→20:23)
--- NOTE | 2019-02-15 07:45 | NUR ---
spoke with Dr. Davis at bedside regarding pt's NPO status. Pt and family member state pt has been eating very little for the past few months but is able to drink some liquids. he states is okay to give pt some PO liquid. will try some thickened liquids and continue to monitor.
--- NOTE | 2019-02-15 08:30 | NUR ---
at bedside starting blood tranfusion with LAVERNE Osorio. pt awake, alert, vital signs stable, no signs of distress. Addendum: 02/15/19 at 0859 by Cuba Underwood RN Dr. Davis also states may d/c fluids if pt able to drink PO; it appears pt developing ascites. will continue to monitor.
[2019-02-15 08:45] LABS: ANISOCYTOSIS MODERATE; BAND NEUTROPHILS % (MANUAL) 9 %; LYMPHOCYTES % (MANUAL) 4 % (19-48); NEUTROPHILS % (MANUAL) 87 % (40-74); POIKILOCYTOSIS MODERATE; TOXIC GRANULATION SLIGHT
[2019-02-15 08:46] LABS: PLATELET ESTIMATE MODERATELY DECREASED; PLATELET MORPHOLOGY COMMENT NORMAL; SCHISTOCYTES RARE
--- NOTE | 2019-02-15 09:36 | NUR ---
pt receiving blood, awake, alert, in stable condition. paging Dr. Barber for permission to access pt's left chest port-o-cath.
--- NOTE | 2019-02-15 10:15 | NUR ---
paging Dr. Fleming for permission to access pt's portocath while he is receiving blood.
--- NOTE | 2019-02-15 10:31 | NUR ---
Nutrition Intervention Note RD Recommendation(s) for Physician: The patient meets criteria for cancer-related SEVERE protein-calorie malnutrition. -Advance diet as tolerated to full liquid diet -Supplement with Ensure Enlive TID to promote caloric intake -If PO is poor with <50% caloric need, consider Ensure Pudding BID or EN for short term feeding Plan of Care: RD following, monitoring for tolerance and adequacy, ONS rec Nutrition reason for involvement: Nutrition Risk Trigger MST RD Assessment (02/15) 63yo M, who was admitted for shortness of breath and fever. Visited pt in the room. Pt and are Vietnamese speaking only, PCT presented on bedside to translate. Pt was diagnosed with pancreatic cancer back in July 2018 and stopped his chemotherapy 2 months ago. Pt was admitted to [facility] 2 weeks ago for protocolitis and septic shock. Pt has had poor appetite with only liquid intake (soup, yogurt, Ensure) at home for the last few months. Pt complained of abdominal discomfort and nausea when consuming solids. Per , pt has lost over 60lb in the last 6 months (severe weight loss) due to cancer and poor PO intake. During my visit, pt reported +BM without any nausea or vomiting. Pt denied any chewing or swallowing difficulty. No known food allergies. Communicate nutritional rec with RN. Will continue to monitor and follow. Principal Problems/Diagnoses: Sepsis, PNA, pancreatic cancer with metastases PMH: DM, HTN, pancreatic cancer with metastases GI: abdomen ascitic, soft, non-tender, +BM Skin: no pressure ulcer noted Labs: (02/15) Na 135 L, BUN 35 H, Ca 7.6 L, AST 1.5 H, ALT 36 H Meds: (02/15) NaCl, Morphine Ht: 67 inches Wt: 169lb (ascites) BMI: 26.5kg/m2 IBW: 147 lbs Malnutrition Evaluation (02/15/2019) The patient meets criteria for unspecified SEVERE protein-calorie malnutrition. Energy intake: <50% of estimated energy requirements for >1 month Weight loss: >10% in 6 months (Chronic) Fat loss: Moderate clavicle protrusion, orbital with dark circles Muscle loss: Moderate protrusion of acromion process, temporal depression Supporting Evidence: Fluid accumulation: Moderate - ascites Functional Status: salvationist strength not evaluated but significant weakness reported by pt Nutrition Prescription (Diet Order): Full liquid with Ensure Enlive TID Estimated Nutritional Needs (weight based on last visit): 3969-6529 calories/day (25-35 kcal/kg CBW) 64-95 g protein/day (1.-1.5g pro/kg CBW) Diet Adequacy: Not meeting calorie needs, not meeting protein needs Tolerance: Tolerance pending Diet Education Needs Assessment: Diet education not indicated. Nutrition Care Level: high Nutrition Diagnosis: Severe malnutrition related to cancer as evidenced by poor PO intake, significant weight loss as well as loss of muscle and fat. Goal: Patient will meet 75-100% of estimated needs by follow up Progress: N/A Interventions: Texture-modified diet, Commercial beverage, Commercial food, Multivitamin/mineral supplement therapy Monitoring/Evaluation: Total energy intake, Total protein intake, Modified diet, Liquid supplement, Weight change Signed: Elaine Mohan MS, RD, LD
--- NOTE | 2019-02-15 10:47 | Progress Note ---
DATE: SUBJECTIVE: The patient is off BiPAP. He is now on a nasal cannula. He has been receiving IV fluids. His blood count is low this morning. PHYSICAL EXAMINATION: VITAL SIGNS: The patient is afebrile. The blood pressure is 118/63 and saturation is 99% on 3 L. CARDIAC: Reveals regular rate and rhythm with normal S1, S2. There are no murmurs or rubs heard auscultation. LUNGS: Reveals rhonchorous breath sounds bilaterally. There is no wheezing. ABDOMEN: Soft, nontender. There is no rebound or guarding. EXTREMITIES: Show no leg edema or calf tenderness. There is no cyanosis or clubbing. IMPRESSION: 1. Healthcare-associated pneumonia with sepsis, present on admission. 2. Metastatic prostate cancer. 3. Anemia secondary to chronic blood loss. PLAN: 1. Two units of packed red blood cells. 2. Continue antibiotics. 3. Continue oxygen. 4. Decrease IV fluids. 5. Advance diet. Bk Davis MD [facility]/STEPHANIE /[id number]
[2019-02-15] MEDS ORDERED: DOCUSATE SODIUM LIQD 100 MG/10 ML UDC NG SCH (13:30)
[2019-02-15] MEDS ORDERED: SODIUM CHLORIDE 452MG TAB PO ONE (13:30)
[2019-02-15] MEDS ORDERED: ALBUMIN 25% 12.5GM 0.25 GM/ML BTL IV NR (13:30)
[2019-02-15] MEDS: LEVOFLOXACIN 750MG/D5W 150ML 150 ML IV SCH (14:37)
[2019-02-15] MEDS: DOCUSATE SODIUM 100 MG CAP PO SCH (15:41)
[2019-02-15] MEDS ORDERED: PIPER-TAZ 3.375 GM 50 ML IV SCH (18:00)
--- NOTE | 2019-02-15 18:45 | Progress Note ---
DATE: SUBJECTIVE: Mr. Kelley is doing better. His breathing is better. Family at the bedside. REVIEW OF SYSTEMS: Beside weakness, HEENT: Negative. PULMONARY: Negative. CARDIAC: Negative. PHYSICAL EXAMINATION: GENERAL: He is currently alert, oriented, does not seem to be in acute distress. VITAL SIGNS: Stable, currently afebrile. HEENT: Not icteric. NECK: Supple. CHEST: Clear. COR: S1 and S2. No murmurs. ABDOMEN: Soft. Bowel sounds present. EXTREMITIES: He does have generalized edema. LABORATORY DATA: His blood cultures are negative 24 hours. His hemoglobin 6.8, white count 8.9. His sodium 135, potassium of 4.5. IMPRESSION AND PLAN: 1. Pneumonia present on admission, community-acquired. 2. Sepsis on admission better. 3. Pancreatic cancer with mets. 4. History of diabetes. 5. History of hypertension. PLAN: Plan on eight days of antibiotic. He is currently on Levaquin. Continue supportive care. Discussed with the family. Prognosis remains guarded to poor. MD ELIU Lorenzo/STEPHANIE /[id number]
--- NOTE | 2019-02-15 19:10 | NUR ---
gave report to oncoming RN; pt awake, alert, no signs of distress, safety measures in place. family at bedside.
--- NOTE | 2019-02-15 20:20 | NUR ---
PATIENT RESTING COMFORTABLY IN BED, NO SIGNS OF DISTRESS NOTED. NASAL CANNULA INTACT AND RUNNING AT 4 LITERS AND FAMILY MEMBERS AT BEDSIDE. IV ANTIBIOTICS ARE RUNNING AT ORDERED RATE AND PATIENT VOICES NO PAIN AT THIS TIME. BED IN LOWEST POSITION, BOTH SIDE RAILS ARE UP, CALL LIGHT IS WITHIN EASY REACH, WILL CONTINUE TO MONITOR.
[2019-02-16] VITALS (8 sets, daily range): BP systolic 128–166; BP diastolic 63–88
[2019-02-16] MEDS: PIPER-TAZ 3.375 GM 50 ML IV SCH ×4 (00:36→18:40)
[2019-02-16 06:36] LABS: BASOPHILS % 0.3 % (0.0-1.0); EOSINOPHILS % 0.2 % (0.0-6.0); HEMATOCRIT 31.9 % (38.2-49.6); HEMOGLOBIN 10.5 g/dL (14.0-18.0); LYMPHOCYTES # (AUTO) 0.5 (1.0-3.2); MEAN CORPUSCULAR HEMOGLOBIN 30.3 pg (28-32); MEAN CORPUSCULAR HGB CONC 32.9 g/dL (31-35); MEAN CORPUSCULAR VOLUME 91.9 fL (81-99); MONOCYTES # (AUTO) 0.5 (0.2-0.8); MONOCYTES % 4.4 % (4.4-11.3); NEUTROPHILS % 90.2 % (38.7-80.0); PLATELET COUNT 117 x10e3/uL (140-360); RED BLOOD COUNT 3.47 x10e6/uL (4.3-5.7); RED CELL DISTRIBUTION WIDTH 19.9 % (11.7-14.4)
--- NOTE | 2019-02-16 07:00 | NUR ---
received am report and rounds done. pt is sleeping, no s/s of distress. call light within reach and bed safety implemented. is at the bedside sleeping
[2019-02-16] MEDS: INSULIN REGULAR, HUMAN 100 UNIT/1 ML 3ML VIAL SQ SCH ×4 (07:30→21:00)
[2019-02-16 08:18] LABS: ALANINE AMINOTRANSFERASE 16 IU/L (0-55); ALBUMIN 1.7 g/dL (3.5-5.0); ALBUMIN/GLOBULIN RATIO 0.4 (0.8-2.0); ALKALINE PHOSPHATASE 365 IU/L (40-150); ANION GAP 17.1 mmol/L (8-16); BLOOD UREA NITROGEN 35 mg/dL (7-26); BUN/CREATININE RATIO 42 (6-25); CALCIUM 8.1 mg/dL (8.4-10.2); CARBON DIOXIDE 23 mmol/L (22-29); CHLORIDE 99 mmol/L (98-107); CREATININE, SERUM 0.83 mg/dL (0.72-1.25); EST GLOMERULAR FILTRATION RATE > 60 ML/MIN (60-); GLUCOSE 113 mg/dL (74-118); POTASSIUM 4.1 mmol/L (3.5-5.1); SODIUM 135 mmol/L (136-145)
[2019-02-16] MEDS ORDERED: SODIUM CHLORIDE 452MG TAB PO NR (08:30)
[2019-02-16] MEDS ORDERED: ALBUMIN 25% 12.5GM 0.25 GM/ML BTL IV NR ×2 (08:30→12:00)
[2019-02-16 09:49] LABS: LYMPHOCYTES % (MANUAL) 3 % (19-48); MONOCYTES % (MANUAL) 2 % (3.4-9.0); NEUTROPHILS % (MANUAL) 95 % (40-74); PLATELET ESTIMATE ADEQUATE; PLATELET MORPHOLOGY COMMENT NORMAL; RBC MORPHOLOGY COMMENT NORMAL
[2019-02-16] MEDS: LEVOFLOXACIN 750MG/D5W 150ML 150 ML IV SCH (10:49)
[2019-02-16] MEDS: PANTOPRAZOLE SOD 40 MG TABEC PO SCH (10:49)
[2019-02-16] MEDS: DOCUSATE SODIUM 100 MG CAP PO SCH (10:49)
--- NOTE | 2019-02-16 10:54 | Progress Note ---
DATE: SUBJECTIVE: The patient has some leg edema. He continues to have ascites. He is complaining of weakness. He is not having fever. PHYSICAL EXAMINATION: VITAL SIGNS: The patient is afebrile. The blood pressure is 131/88 and saturation is 96% on 3 L. HEENT: Shows no facial swelling or erythema. CARDIAC: Reveals regular rate and rhythm with normal S1 and S2. LUNGS: Auscultation of lungs reveals clear breath sounds bilaterally. ABDOMEN: Soft and nontender. There is no rebound or guarding. EXTREMITIES: Shows no tenderness. There is 2 to 3+ leg edema. IMPRESSION: 1. Metastatic prostate cancer with associated ascites and leg edema. 2. Healthcare-associated pneumonia with sepsis, present on admission. 3. Anemia secondary to chronic blood loss. 4. Diabetes. 5. Hypertension. PLAN: 1. Continue diuretics. 2. Continue to monitor blood counts. 3. Antibiotics as per Infectious Disease. 4. Prognosis remains poor. MD ARTHUR Mims/STEPHANIE /[id number]
--- NOTE | 2019-02-16 15:30 | NUR ---
Visit made by the Spiritual Care Department Pastoral Visitor, Dominguez Huggins. PV provided pastoral presence, hospitality, communion, and supportive listening. Pastoral Visitor informed pt/family of the scope of [facility] and availability. GIDEON OREILLY Retread Technician Spiritual Care Department O: [phone] Pager: [phone] ([phone] number calling from)
[2019-02-16] MEDS: METOPROLOL TARTRATE 50 MG TAB PO SCH (21:20)
--- NOTE | 2019-02-16 21:20 | NUR ---
PATIENT RESTING COMFORTABLY IN BED, NO SIGNS OF DISTRESS NOTED. NASAL CANNULA INTACT AND RUNNING AT 4 LITERS AND FAMILY MEMBERS AT BEDSIDE. PATIENT HAS NOW RECEIVED MEDICATION FOR ELEVATED BLOOD PRESSURE AND PATIENT VOICES NO PAIN AT THIS TIME. BED IN LOWEST POSITION, BOTH SIDE RAILS ARE UP, CALL LIGHT IS WITHIN EASY REACH, WILL CONTINUE TO MONITOR.
[2019-02-17] MEDS: PIPER-TAZ 3.375 GM 50 ML IV SCH ×2 (00:25→06:11)
[2019-02-17] MEDS: MORPHINE SULFATE INJ 4 MG/ML INJ 1ML IV PRN (01:08)
[2019-02-17] MEDS: ONDANSETRON HCL INJ 2MG/ML 2ML 2 MG/ML VIAL IV PRN (01:08)
[2019-02-17 01:12] VITALS: BP 152/67
[2019-02-17 04:06] VITALS: BP 169/78
[2019-02-17 06:25] LABS: BASOPHILS % 0.3 % (0.0-1.0); EOSINOPHILS % 0.1 % (0.0-6.0); HEMATOCRIT 30.8 % (38.2-49.6); HEMOGLOBIN 10.4 g/dL (14.0-18.0); LYMPHOCYTES # (AUTO) 0.4 (1.0-3.2); MEAN CORPUSCULAR HGB CONC 33.8 g/dL (31-35); MEAN CORPUSCULAR VOLUME 91.7 fL (81-99); MONOCYTES # (AUTO) 0.6 (0.2-0.8); MONOCYTES % 5.4 % (4.4-11.3); NEUTROPHILS # (AUTO) 9.3 (2.1-6.9); NEUTROPHILS % 89.5 % (38.7-80.0); PLATELET COUNT 101 x10e3/uL (140-360); RED BLOOD COUNT 3.36 x10e6/uL (4.3-5.7); RED CELL DISTRIBUTION WIDTH 20.8 % (11.7-14.4)
[2019-02-17 06:43] LABS: ALANINE AMINOTRANSFERASE 15 IU/L (0-55); ALBUMIN 2.3 g/dL (3.5-5.0); ALBUMIN/GLOBULIN RATIO 0.7 (0.8-2.0); ALKALINE PHOSPHATASE 358 IU/L (40-150); ANION GAP 22.1 mmol/L (8-16); BLOOD UREA NITROGEN 30 mg/dL (7-26); BUN/CREATININE RATIO 35 (6-25); CALCIUM 8.5 mg/dL (8.4-10.2); CARBON DIOXIDE 19 mmol/L (22-29); CHLORIDE 100 mmol/L (98-107); CREATININE, SERUM 0.85 mg/dL (0.72-1.25); EST GLOMERULAR FILTRATION RATE > 60 ML/MIN (60-); GLUCOSE 220 mg/dL (74-118); POTASSIUM 4.1 mmol/L (3.5-5.1); SODIUM 137 mmol/L (136-145)
--- NOTE | 2019-02-17 07:00 | NUR ---
received am report and rounds done. pt is alert resting in bed, no s/s of distress and no complaints of pain. call light within reach and instructed pt to call RN for help. is at the bedside.
[2019-02-17] MEDS: INSULIN REGULAR, HUMAN 100 UNIT/1 ML 3ML VIAL SQ SCH ×2 (07:30→11:30)
[2019-02-17 08:05] VITALS: BP 164/81
[2019-02-17 08:07] VITALS: BP 164/81
[2019-02-17] MEDS: DOCUSATE SODIUM 100 MG CAP PO SCH (09:00)
[2019-02-17] MEDS ORDERED: NON-FORMULARY MEDICATION (Metoprolol Tartrate 100 MG) PO SCH (09:00)
[2019-02-17] MEDS: LEVOFLOXACIN 750MG/D5W 150ML 150 ML IV SCH (09:24)
[2019-02-17] MEDS: PANTOPRAZOLE SOD 40 MG TABEC PO SCH (09:24)
[2019-02-17] MEDS: METOPROLOL TARTRATE 50 MG TAB PO SCH (09:24)
--- NOTE | 2019-02-17 11:13 | NUR ---
Dr. Barber made rounds and approved of the patient going home with hospice care. Dr. Fleming also called and stated that if the patient goes home with hospice then there is no need to follow up with Dr. Fleming in the office, however, if the patient does not receive hospice care then the patient needs to follow up with Dr. Fleming next week.
[2019-02-17 11:49] LABS: BAND NEUTROPHILS % (MANUAL) 2 %; MONOCYTES % (MANUAL) 5 % (3.4-9.0); NEUTROPHILS % (MANUAL) 93 % (40-74)
[2019-02-17 11:50] LABS: PLATELET ESTIMATE SLIGHTLY DECREASED; PLATELET MORPHOLOGY COMMENT NORMAL
[2019-02-17 11:51] LABS: ANISOCYTOSIS MODERATE; RBC MORPHOLOGY COMMENT ABNORMAL
[2019-02-17 12:08] VITALS: BP 167/83
--- NOTE | 2019-02-17 12:28 | NUR ---
CM SPOKE W DR. SILVA REGARDING DC PLAN. STATES THE PT IS OK TO GO HOME W HOSPICE IF THEY LIKE. STATED THE PT HAD BEEN ADMITTED 3 TIMES IN THE PAST MONTH AND STRESSED THE IMPORTANCE OF CARE AT HOME. CM MET W THE PATIENT AND AT THE BEDSIDE TO DISCUSS CHOICE. THE PT AND STATES THEY SPOKE W [place] [facility]. CHOICE LETTER SIGNED AND CALL TO [facility] @[phone]. OFF: [phone].
--- NOTE | 2019-02-17 12:39 | Progress Note ---
DATE: SUBJECTIVE: Mr. Kelley is lying in bed. He said he is feeling better, however, he remains very weak. Abdomen is still distended. REVIEW OF SYSTEMS: He is just weak. Shortness of breath is better, but present. I had met with the family and discussed with them the finding. PHYSICAL EXAMINATION: GENERAL: He is alert, oriented, pale. HEENT: Pale, but not icteric. CHEST: Few crackles bilateral. COR: S1 and S2. No S3, S4, or murmurs. ABDOMEN: Soft. Bowel sounds present. No tenderness. EXTREMITIES: No edema. SKIN: No rash. IMPRESSION: 1. Pancreatic cancer with metastases. 2. Pneumonia, concerned postobstructive. 3. Anemia. 4. Diabetes. 5. Hypertension. 6. Debility. So far, the blood cultures are negative. White count is within normal limit. The patient is responding nicely to finish 8 days of antibiotic. He is currently on Levaquin and Zosyn. Continue with supportive care. Discussed with the family. MD ELIU Lorenzo/STEPHANIE /[id number]
--- NOTE | 2019-02-17 14:40 | NUR ---
hospice has been setup at home. Dr. Barber has cleared the pt for discharge but asked RN to follow up with Dr. Nicole to see if antibiotic treatment is needed at home. Dr. Nicole is currently making rounds and will write a prescription for antibiotics.
--- NOTE | 2019-02-17 14:52 | NUR ---
RICARDO MET [facility]. STATES ALL THE PAPERWORK HAS BEEN COMPLETED. PT SHOULD BE READY FOR TRANSPORT AROUND 430 - 530PM TODAY. TAE NOTIFIED. STATES SHE HAS A DC ORDER IN PLACE.
[2019-02-17 16:08] VITALS: BP 164/78
--- NOTE | 2019-02-17 17:56 | Progress Note ---
DATE: SUBJECTIVE: Mr. Kelley is lying in bed, comfortable. No new complaints. Family did decide to go with hospice. REVIEW OF SYSTEMS: HEENT: Negative. PULMONARY: Negative. He is still weak. PHYSICAL EXAMINATION: GENERAL: He is currently alert, oriented, does not seem in acute distress. VITAL SIGNS: Stable, currently afebrile. HEENT: Not icteric. NECK: Supple. CHEST: Clear. ABDOMEN: Soft. IMPRESSION: 1. Pneumonia, getting better. 2. Pancreatic cancer with metastases, stable. 3. Debility. 4. Can discharge to hospice. We will give Augmentin 875 p.o. b.i.d. for 5 days. Discussed with the patient and answered all the questions. MD ELIU Lorenzo/MODKatie /[id number]
--- NOTE | 2019-02-19 05:13 | Discharge Summary ---
Mr. Kelley is a complex and unfortunate 63-year-old man with known metastatic pancreatic cancer. Chief complaint, he presented to the emergency room with a complaint of shortness of breath and tachycardia. His initial temperature was 106. HOSPITAL COURSE: He was seen by Dr. Davis and Dr. Nicole, who felt that he had pneumonia. With his malignancy and prolonged bedrest, I was concerned that he might have pulmonary emboli, but CT of the chest did not show any pulmonary emboli following multifocal pneumonia and the metastases in the liver. Blood cultures were drawn. He started on broad-spectrum antibiotics. His initial tachycardia slowed with some fluid repletion with antibiotics. The patient made gradual progress and was found course that he was not eating well, losing weight. His disease is progressive and it was felt that hospice care would be most beneficial for he and his family. As he was afebrile, he was converted to oral antibiotics and discharged on the to hospice care and follow up with Dr. Fleming. DISCHARGE DIAGNOSES: 1. Metastatic pancreatic cancer. 2. Pneumonia. He was given prescription for Augmentin 875 mg b.i.d. for five days. MD ILANA Silva/SETPHANIE /[id number] cc: MD Mario Alberto Lorenzo MD Louis M Hamer, MD Mohamed M Haq, MD
== END 2019-02-17 18:25 | disposition hospice, home (50) | DRG 871 ==
LOC: ER 07:36 → ERHOLD 08:00 → MED/SURG3 17:18
PROVIDERS: ADMIT Internal Medicine Cardiovascular Disease; ATTEND Internal Medicine Cardiovascular Disease
PROC: 30243N1 Transfusion of Nonautologous Red Blood Cells into Central Vein, Percutaneous Approach (ICD-10-PCS; principal; 2019-02-15)
DX: A41.9 Sepsis, unspecified organism (principal); J18.9 Pneumonia, unspecified organism; C78.7 Secondary malignant neoplasm of liver and intrahepatic bile duct; C79.51 Secondary malignant neoplasm of bone; R18.0 Malignant ascites; C25.9 Malignant neoplasm of pancreas, unspecified; E11.9 Type 2 diabetes mellitus without complications; Y95 Nosocomial condition; D50.0 Iron deficiency anemia secondary to blood loss (chronic); C80.1 Malignant (primary) neoplasm, unspecified; I10 Essential (primary) hypertension
CPT/HCPCS: 36415; 36600; 71045; 71260; 80053; 82140; 82150; 82270; 82550; 82553; 82805; 82948; 83605; 83690; 83880; 84484; 85025; 85610; 86850; 86900; 86920; 87040; 87400; 87493; 93005; 94640; 94660; 94664; 94760; 96360; 99284; J1160; J1817; J2270; J2405; J2543; J7030; J7050; P9016; Q9967